=== PATIENT | male | born 1950 | race Caucasian/White ===

== ENCOUNTER 2017-09-16 22:11 | Inpatient (IN) | payer MEDICARE, OTHER ==
[~2017-09-16] VITALS: Ht 167.6 cm; Wt 55.0 kg
[~2017-09-16 22:11] MED LIST: ALBU6.7H INH
[2017-09-16] MEDS ORDERED: ipratropium/albuterol 3ml nebule NEB STA (22:20)
[2017-09-16 22:27] LABS: BASOPHILS # (AUTO) 0.1 X10'3 (0-0.2); BASOPHILS % (AUTO) 0.3 % (0-1); EOSINOPHILS # (AUTO) 0.5 X10'3 (0-0.9); EOSINOPHILS % (AUTO) 2.8 % (0-6); HEMATOCRIT 41.8 % (42.0-52.0); HEMOGLOBIN 13.7 g/dl (14.0-17.9); LYMPHOCYTES # (AUTO) 2.3 X10'3 (1.1-4.8); LYMPHOCYTES % (AUTO) 12.1 % (21-51); MEAN CORPUSCULAR HEMOGLOBIN 23.2 PG (27.0-31.0); MEAN CORPUSCULAR HGB CONC 32.7 % (33.0-36.5); MEAN CORPUSCULAR VOLUME 71.1 FL (78-98); MEAN PLATELET VOLUME 8.3 FL (7.4-10.4); MONOCYTES # (AUTO) 1.2 X10'3 (0-0.9); MONOCYTES % (AUTO) 6.5 % (2-12); NEUTROPHILS # (AUTO) 14.9 X10'3 (1.8-7.7); NEUTROPHILS % (AUTO) 78.3 % (42-75); PLATELET COUNT 281 X10'3 (140-440); RED BLOOD COUNT 5.89 X10'6 (4.70-6.10); RED CELL DISTRIBUTION WIDTH 15.5 % (11.5-14.5)
[2017-09-16 22:36] LABS: ABG BASE EXCESS -5.2 mmol/L (-2.0-3.0); ABG HCO3 19.5 mmol/L (22.0-26.0); ABG OXYGEN SATURATION 95.3 % (95-98); ABG PCO2 (T) 35.5 mmHg (35.0-48.0); ABG PH (T) 7.358 (7.350-7.450); ABG PO2 (T) 73.8 mmHg (83-108); FCOHb 1.3 % (0.5-1.5); FLOW 2 L/min; FO2Hb 94.1 % (94-100); PATIENT TEMPERATURE 37.2; RESPIRATORY RATE (OBSERVED) 46 b/min; TOTAL HEMOGLOBIN 13.8 G/dl (14.0-18.0)
[2017-09-16 22:45] LABS: ALANINE AMINOTRANSFERASE 22 U/L (12-78); ALBUMIN/GLOBULIN RATIO 1.1 (1.1-1.5); ALKALINE PHOSPHATASE 89 IU/L (46-116); ANION GAP 8 (8-16); ASPARTATE AMINO TRANSFERASE 13 U/L (10-37); BILIRUBIN,TOTAL 0.3 MG/DL (0.1-1.0); BLOOD UREA NITROGEN 17 MG/DL (7-18); CALCIUM 9.1 MG/DL (8.5-10.1); CHLORIDE 103 MMOL/L (99-107); GLUCOSE 134 MG/DL (70-104); POTASSIUM 4.2 MMOL/L (3.5-5.1); SODIUM 139 MMOL/L (135-145); TOTAL CARBON DIOXIDE 28.4 MMOL/L (24-32); TOTAL PROTEIN 7.7 G/DL (6.4-8.2); eGFR 74 ML/MIN
[2017-09-16] MEDS ORDERED: albuterol 2.5 MG/3 ML nebule CONTNEB PRN ×2 (22:45→22:55)
[2017-09-16 22:52] LABS: PARTIAL THROMBOPLASTIN TIME 25 SECONDS (22-32)
[2017-09-16] MEDS ORDERED: ipratropium/albuterol 3ml nebule NEB ONE (22:55)
[2017-09-16] MEDS ORDERED: dexamethasone sod phosphate 10mg/ml inj IV STA (22:55)
[2017-09-17] MEDS ORDERED: azithromycin 250mg tablet PO ONE (00:15)
[2017-09-17] MEDS ORDERED: CefTRIAXone 2gm/NS 100ml IVPB 100 ML IV ONE (00:15)
[2017-09-17] MEDS ORDERED: normal saline 500ml IV soln 1,000 ML IV ONE (01:25)
[2017-09-17] MEDS ORDERED: normal saline 1000ml 1,000 ML IV ONE (01:25)
[2017-09-17] MEDS ORDERED: magnesium hydroxide 30ml (MOM) UD suspension PO PRN (01:35)
[2017-09-17] MEDS ORDERED: acetaminophen 325mg tablet PO PRN (01:35)
[2017-09-17] MEDS ORDERED: ondansetron/PF 4mg/2ml inj IV PRN (01:35)
[2017-09-17] MEDS ORDERED: mag hydrox/Alum hydrox/simeth 30ml oral suspension PO PRN (01:35)
[2017-09-17] MEDS ORDERED: FLUT1AER (02:01)
[2017-09-17] MEDS: albuterol 2.5 MG/3 ML nebule NEB SCH ×5 (07:00→23:17)
[2017-09-17 08:07] VITALS: BP 153/79
[2017-09-17] MEDS: methylPREDNISolone sod succ/PF 40mg inj. IV SCH ×3 (08:23→23:51)
[2017-09-17] MEDS: heparin, porcine 5000 units/ml vial SQ SCH ×2 (08:23→20:04)
[2017-09-17 11:06] VITALS: BP 107/66
[2017-09-17 20:00] VITALS: BP 137/82
[2017-09-18] VITALS: BP 119/74
[2017-09-18] MEDS: albuterol 2.5 MG/3 ML nebule NEB SCH ×3 (02:50→11:18)
[2017-09-18 05:26] LABS: BASOPHILS % (AUTO) 0.1 % (0-1); EOSINOPHILS # (AUTO) 0.3 X10'3 (0-0.9); EOSINOPHILS % (AUTO) 1.8 % (0-6); HEMATOCRIT 35.4 % (42.0-52.0); HEMOGLOBIN 11.7 g/dl (14.0-17.9); LYMPHOCYTES # (AUTO) 0.8 X10'3 (1.1-4.8); LYMPHOCYTES % (AUTO) 4.8 % (21-51); MEAN CORPUSCULAR HEMOGLOBIN 23.4 PG (27.0-31.0); MONOCYTES # (AUTO) 0.6 X10'3 (0-0.9); MONOCYTES % (AUTO) 3.6 % (2-12); NEUTROPHILS # (AUTO) 14.6 X10'3 (1.8-7.7); NEUTROPHILS % (AUTO) 89.7 % (42-75); PLATELET COUNT 245 X10'3 (140-440); RED BLOOD COUNT 4.99 X10'6 (4.70-6.10); RED CELL DISTRIBUTION WIDTH 15.4 % (11.5-14.5); WHITE BLOOD COUNT 16.3 X10'3 (4.5-11.0)
[2017-09-18 05:56] LABS: % IRON SATURATION 59 % (11-46); IRON 124 UG/DL (53-167); TOTAL IRON BINDING CAPACITY 209 UG/DL (259-388)
[2017-09-18 06:01] LABS: ALANINE AMINOTRANSFERASE 19 U/L (12-78); ALBUMIN 3.3 G/DL (3.4-5.0); ALBUMIN/GLOBULIN RATIO 1.1 (1.1-1.5); ALKALINE PHOSPHATASE 63 IU/L (46-116); ANION GAP 7 (8-16); ASPARTATE AMINO TRANSFERASE 19 U/L (10-37); BILIRUBIN,TOTAL 0.2 MG/DL (0.1-1.0); BLOOD UREA NITROGEN 14 MG/DL (7-18); BUN/CREATININE RATIO 17.5 (5.4-32.0); CALCIUM 8.8 MG/DL (8.5-10.1); CHLORIDE 108 MMOL/L (99-107); GLUCOSE 146 MG/DL (70-104); POTASSIUM 4.3 MMOL/L (3.5-5.1); SODIUM 141 MMOL/L (135-145); TOTAL CARBON DIOXIDE 25.7 MMOL/L (24-32); TOTAL PROTEIN 6.3 G/DL (6.4-8.2); eGFR > 90 ML/MIN
[2017-09-18 07:00] VITALS: BP 106/71
[2017-09-18] MEDS: heparin, porcine 5000 units/ml vial SQ SCH (07:17)
[2017-09-18] MEDS: methylPREDNISolone sod succ/PF 40mg inj. IV SCH (07:21)
[2017-09-18 11:45] VITALS: BP 146/85
[2017-09-18] MEDS ORDERED: PRED10TA23 PO (12:54)
[2017-09-18] MEDS ORDERED: AMOX-422 PO (12:54)
[2017-09-18] MEDS ORDERED: FLUT1AER INH (12:54)
== END 2017-09-18 15:31 | disposition home or self-care (01) | DRG 872 ==
LOC: ER 22:12 → ED HOLD 09-17 01:34 → SUR 3N 09-17 07:59
PROVIDERS: ADMIT Internal Medicine; ATTEND Internal Medicine
DX: A41.9 Sepsis, unspecified organism (principal); J44.0 Chronic obstructive pulmonary disease with (acute) lower respiratory infection; J44.1 Chronic obstructive pulmonary disease with (acute) exacerbation; D64.9 Anemia, unspecified; J20.9 Acute bronchitis, unspecified; R06.03 Acute respiratory distress; Z79.899 Other long term (current) drug therapy; Z87.891 Personal history of nicotine dependence
CPT/HCPCS: 36415; 36600; 71045; 80053; 82803; 83540; 83550; 83605; 83880; 84145; 84484; 85018; 85025; 85610; 85730; 87040; 87070; 87502; 87503; 93005; 94640; 94760; 96365; 96375; 99291; J0696; J1100; J1644; J2920; J7030

== ENCOUNTER 2017-09-18 21:04 | Inpatient (IN) | payer MEDICARE, OTHER ==
[~2017-09-18] VITALS: Ht 167.6 cm; Wt 54.5 kg
[~2017-09-18 21:04] MED LIST changes: +AMOX-422 PO; +FLUT1AER; +FLUT1AER INH; +PRED10TA23 PO
[2017-09-18] MEDS ORDERED: normal saline 1000ML IV soln IVB ONE (21:35)
[2017-09-18] MEDS ORDERED: ipratropium 0.5 MG/2.5ML nebule IH ONE (21:35)
[2017-09-18] MEDS ORDERED: albuterol 2.5 MG/3 ML nebule CONTNEB PRN (21:35)
[2017-09-18 21:49] LABS: BASOPHILS % (AUTO) 0.1 % (0-1); EOSINOPHILS # (AUTO) 0.3 X10'3 (0-0.9); EOSINOPHILS % (AUTO) 1.6 % (0-6); HEMATOCRIT 39.1 % (42.0-52.0); HEMOGLOBIN 12.8 g/dl (14.0-17.9); LYMPHOCYTES # (AUTO) 1.7 X10'3 (1.1-4.8); LYMPHOCYTES % (AUTO) 8.5 % (21-51); MEAN CORPUSCULAR HEMOGLOBIN 23.2 PG (27.0-31.0); MEAN CORPUSCULAR HGB CONC 32.7 % (33.0-36.5); MEAN CORPUSCULAR VOLUME 71.1 FL (78-98); MEAN PLATELET VOLUME 8.9 FL (7.4-10.4); MONOCYTES # (AUTO) 1.6 X10'3 (0-0.9); MONOCYTES % (AUTO) 7.8 % (2-12); NEUTROPHILS # (AUTO) 16.7 X10'3 (1.8-7.7); PLATELET COUNT 258 X10'3 (140-440); RED BLOOD COUNT 5.51 X10'6 (4.70-6.10); RED CELL DISTRIBUTION WIDTH 15.6 % (11.5-14.5); WHITE BLOOD COUNT 20.3 X10'3 (4.5-11.0)
[2017-09-18 21:58] LABS: ALANINE AMINOTRANSFERASE 28 U/L (12-78); ALBUMIN/GLOBULIN RATIO 1.1 (1.1-1.5); ALKALINE PHOSPHATASE 77 IU/L (46-116); ANION GAP 8 (8-16); ASPARTATE AMINO TRANSFERASE 27 U/L (10-37); BILIRUBIN,TOTAL 0.2 MG/DL (0.1-1.0); BLOOD UREA NITROGEN 19 MG/DL (7-18); CHLORIDE 104 MMOL/L (99-107); GLUCOSE 123 MG/DL (70-104); POTASSIUM 3.8 MMOL/L (3.5-5.1); SODIUM 139 MMOL/L (135-145); TOTAL CARBON DIOXIDE 27.5 MMOL/L (24-32); TOTAL PROTEIN 7.5 G/DL (6.4-8.2); eGFR 74 ML/MIN
[2017-09-18] MEDS ORDERED: methylPREDNISolone sod succ 125mg/2ml vial IV ONE (22:30)
[2017-09-18] MEDS ORDERED: ondansetron/PF 4mg/2ml inj IV PRN (22:40)
[2017-09-18] MEDS ORDERED: acetaminophen 325mg tablet PO PRN (22:40)
[2017-09-18] MEDS ORDERED: mag hydrox/Alum hydrox/simeth 30ml oral suspension PO PRN (22:40)
[2017-09-18] MEDS ORDERED: magnesium hydroxide 30ml (MOM) UD suspension PO PRN (22:40)
[2017-09-18 23:33] VITALS: BP 152/84
[2017-09-18] MEDS: methylPREDNISolone sod succ 125mg/2ml vial IV SCH (23:42)
[2017-09-19] VITALS: BP 156/84
[2017-09-19] MEDS: albuterol 2.5 MG/3 ML nebule NEB SCH ×7 (01:05→23:36)
[2017-09-19 05:19] LABS: BASOPHILS % (AUTO) 0 % (0-1); EOSINOPHILS # (AUTO) 0.1 X10'3 (0-0.9); EOSINOPHILS % (AUTO) 0.8 % (0-6); HEMATOCRIT 32.9 % (42.0-52.0); LYMPHOCYTES # (AUTO) 0.6 X10'3 (1.1-4.8); LYMPHOCYTES % (AUTO) 3.4 % (21-51); MEAN CORPUSCULAR HEMOGLOBIN 23.4 PG (27.0-31.0); MEAN CORPUSCULAR HGB CONC 33.5 % (33.0-36.5); MEAN CORPUSCULAR VOLUME 69.9 FL (78-98); MEAN PLATELET VOLUME 8.6 FL (7.4-10.4); MONOCYTES # (AUTO) 0.6 X10'3 (0-0.9); MONOCYTES % (AUTO) 3.6 % (2-12); NEUTROPHILS # (AUTO) 15.6 X10'3 (1.8-7.7); NEUTROPHILS % (AUTO) 92.2 % (42-75); PLATELET COUNT 233 X10'3 (140-440); RED CELL DISTRIBUTION WIDTH 15.1 % (11.5-14.5); WHITE BLOOD COUNT 16.9 X10'3 (4.5-11.0)
[2017-09-19 05:39] LABS: ELLIPTOCYTES 1+; MICROCYTOSIS 2+; PLATELET ESTIMATE NORMAL
[2017-09-19 05:52] LABS: ALANINE AMINOTRANSFERASE 23 U/L (12-78); ALBUMIN 3.3 G/DL (3.4-5.0); ALBUMIN/GLOBULIN RATIO 1.1 (1.1-1.5); ALKALINE PHOSPHATASE 63 IU/L (46-116); ANION GAP 11 (8-16); ASPARTATE AMINO TRANSFERASE 20 U/L (10-37); BILIRUBIN,TOTAL 0.3 MG/DL (0.1-1.0); BLOOD UREA NITROGEN 17 MG/DL (7-18); CALCIUM 8.6 MG/DL (8.5-10.1); CHLORIDE 106 MMOL/L (99-107); GLUCOSE 147 MG/DL (70-104); SODIUM 142 MMOL/L (135-145); TOTAL PROTEIN 6.2 G/DL (6.4-8.2); eGFR 74 ML/MIN
[2017-09-19] MEDS ORDERED: amox tr/potassium clavulanate 875/125mg TAB PO SCH (08:00)
[2017-09-19] MEDS: methylPREDNISolone sod succ 125mg/2ml vial IV SCH ×3 (09:24→23:55)
[2017-09-19] MEDS: heparin, porcine 5000 units/ml vial SQ SCH ×2 (09:25→20:34)
[2017-09-19] MEDS: amox tr/potassium clavulanate 875/125mg TAB PO SCH ×2 (09:25→20:33)
[2017-09-19] MEDS ORDERED: iohexol 350MG/ML 100ml bottle IV ONE (18:42)
[2017-09-19 20:00] VITALS: BP 151/88
[2017-09-20] VITALS: BP 144/82
[2017-09-20] MEDS: albuterol 2.5 MG/3 ML nebule NEB SCH ×6 (03:33→23:08)
[2017-09-20 05:20] LABS: BASOPHILS % (AUTO) 0 % (0-1); EOSINOPHILS # (AUTO) 0.2 X10'3 (0-0.9); EOSINOPHILS % (AUTO) 1.1 % (0-6); HEMATOCRIT 35.7 % (42.0-52.0); LYMPHOCYTES # (AUTO) 0.9 X10'3 (1.1-4.8); LYMPHOCYTES % (AUTO) 6.4 % (21-51); MEAN CORPUSCULAR HEMOGLOBIN 23.4 PG (27.0-31.0); MEAN CORPUSCULAR HGB CONC 33.6 % (33.0-36.5); MEAN CORPUSCULAR VOLUME 69.7 FL (78-98); MEAN PLATELET VOLUME 8.7 FL (7.4-10.4); MONOCYTES # (AUTO) 0.6 X10'3 (0-0.9); NEUTROPHILS # (AUTO) 12.3 X10'3 (1.8-7.7); NEUTROPHILS % (AUTO) 88.5 % (42-75); PLATELET COUNT 251 X10'3 (140-440); RED BLOOD COUNT 5.12 X10'6 (4.70-6.10); RED CELL DISTRIBUTION WIDTH 15.2 % (11.5-14.5); WHITE BLOOD COUNT 13.9 X10'3 (4.5-11.0)
[2017-09-20 05:46] LABS: ALANINE AMINOTRANSFERASE 26 U/L (12-78); ALBUMIN 3.3 G/DL (3.4-5.0); ALBUMIN/GLOBULIN RATIO 1.1 (1.1-1.5); ALKALINE PHOSPHATASE 64 IU/L (46-116); ANION GAP 9 (8-16); ASPARTATE AMINO TRANSFERASE 21 U/L (10-37); BILIRUBIN,TOTAL 0.3 MG/DL (0.1-1.0); BLOOD UREA NITROGEN 17 MG/DL (7-18); BUN/CREATININE RATIO 20.2 (5.4-32.0); CHLORIDE 105 MMOL/L (99-107); CREATININE 0.84 MG/DL (0.60-1.10); GLUCOSE 127 MG/DL (70-104); POTASSIUM 4.1 MMOL/L (3.5-5.1); SODIUM 142 MMOL/L (135-145); TOTAL CARBON DIOXIDE 28.4 MMOL/L (24-32); TOTAL PROTEIN 6.4 G/DL (6.4-8.2); eGFR > 90 ML/MIN
[2017-09-20 07:00] VITALS: BP 129/82
[2017-09-20] MEDS ORDERED: FLUT1AER INH (07:32)
[2017-09-20] MEDS: amox tr/potassium clavulanate 875/125mg TAB PO SCH ×2 (08:16→20:40)
[2017-09-20] MEDS: heparin, porcine 5000 units/ml vial SQ SCH ×2 (08:16→20:41)
[2017-09-20] MEDS: lactobacillus rhamnosus 10,000 MMU CELLS/CAPSULE PO SCH ×2 (08:16→16:34)
[2017-09-20] MEDS: methylPREDNISolone sod succ 125mg/2ml vial IV SCH ×3 (08:16→23:59)
[2017-09-20] MEDS: montelukast 10mg tablet PO SCH (10:10)
[2017-09-20 11:00] VITALS: BP 128/59
[2017-09-20] MEDS: benzonatate 100mg capsule PO PRN ×2 (11:32→20:42)
[2017-09-20] MEDS: guaiFENesin ER 600mg tablet PO SCH ×2 (11:32→20:40)
[2017-09-20 18:00] VITALS: BP 129/82
[2017-09-21] VITALS: BP 135/84
[2017-09-21] MEDS: albuterol 2.5 MG/3 ML nebule NEB SCH ×3 (03:03→11:04)
[2017-09-21 05:44] LABS: BASOPHILS % (AUTO) 0 % (0-1); EOSINOPHILS # (AUTO) 0.2 X10'3 (0-0.9); EOSINOPHILS % (AUTO) 1.3 % (0-6); HEMATOCRIT 35.3 % (42.0-52.0); HEMOGLOBIN 11.6 g/dl (14.0-17.9); LYMPHOCYTES # (AUTO) 0.8 X10'3 (1.1-4.8); LYMPHOCYTES % (AUTO) 6.6 % (21-51); MEAN CORPUSCULAR HEMOGLOBIN 23.1 PG (27.0-31.0); MEAN CORPUSCULAR HGB CONC 32.7 % (33.0-36.5); MEAN CORPUSCULAR VOLUME 70.5 FL (78-98); MEAN PLATELET VOLUME 8.7 FL (7.4-10.4); MONOCYTES # (AUTO) 0.6 X10'3 (0-0.9); MONOCYTES % (AUTO) 4.8 % (2-12); NEUTROPHILS % (AUTO) 87.3 % (42-75); PLATELET COUNT 234 X10'3 (140-440); RED BLOOD COUNT 5.01 X10'6 (4.70-6.10); RED CELL DISTRIBUTION WIDTH 15.2 % (11.5-14.5); WHITE BLOOD COUNT 12.6 X10'3 (4.5-11.0)
[2017-09-21] MEDS: benzonatate 100mg capsule PO PRN (05:46)
[2017-09-21 06:15] LABS: ALANINE AMINOTRANSFERASE 27 U/L (12-78); ALBUMIN 3.2 G/DL (3.4-5.0); ALBUMIN/GLOBULIN RATIO 1.1 (1.1-1.5); ALKALINE PHOSPHATASE 56 IU/L (46-116); ANION GAP 8 (8-16); ASPARTATE AMINO TRANSFERASE 17 U/L (10-37); BILIRUBIN,TOTAL 0.2 MG/DL (0.1-1.0); BLOOD UREA NITROGEN 21 MG/DL (7-18); BUN/CREATININE RATIO 23.9 (5.4-32.0); CALCIUM 8.7 MG/DL (8.5-10.1); CHLORIDE 104 MMOL/L (99-107); CREATININE 0.88 MG/DL (0.60-1.10); GLUCOSE 157 MG/DL (70-104); POTASSIUM 3.7 MMOL/L (3.5-5.1); SODIUM 141 MMOL/L (135-145); TOTAL CARBON DIOXIDE 28.8 MMOL/L (24-32); eGFR 86 ML/MIN
[2017-09-21 07:19] VITALS: BP 135/85
[2017-09-21] MEDS: montelukast 10mg tablet PO SCH (08:27)
[2017-09-21] MEDS: amox tr/potassium clavulanate 875/125mg TAB PO SCH (08:28)
[2017-09-21] MEDS: lactobacillus rhamnosus 10,000 MMU CELLS/CAPSULE PO SCH (08:28)
[2017-09-21] MEDS: guaiFENesin ER 600mg tablet PO SCH (08:29)
[2017-09-21] MEDS: heparin, porcine 5000 units/ml vial SQ SCH (08:30)
[2017-09-21] MEDS: methylPREDNISolone sod succ 125mg/2ml vial IV SCH (08:32)
[2017-09-21 11:00] VITALS: BP 134/87
[2017-09-21] MEDS ORDERED: BENZ-34 PO (11:53)
[2017-09-21] MEDS ORDERED: GUAI600T45 PO (11:53)
[2017-09-21] MEDS ORDERED: PRED20TA PO (11:53)
[2017-09-21] MEDS ORDERED: MONT10TA24 PO (11:53)
[2017-09-21] MEDS ORDERED: PRED10TA23 PO (12:19)
== END 2017-09-21 14:06 | disposition home or self-care (01) | DRG 191 ==
LOC: ER 21:05 → ED HOLD 22:39 → EDBEDREQ 22:57 → SUR 3N 23:13
PROVIDERS: ADMIT Internal Medicine; ATTEND Family Medicine
PROC: B32T1ZZ Computerized Tomography (CT Scan) of Left Pulmonary Artery using Low Osmolar Contrast (ICD-10-PCS; principal; 2017-09-19)
PROC: B3201ZZ Computerized Tomography (CT Scan) of Thoracic Aorta using Low Osmolar Contrast (ICD-10-PCS; 2017-09-19)
PROC: B32S1ZZ Computerized Tomography (CT Scan) of Right Pulmonary Artery using Low Osmolar Contrast (ICD-10-PCS; 2017-09-19)
PROC: BW241ZZ Computerized Tomography (CT Scan) of Chest and Abdomen using Low Osmolar Contrast (ICD-10-PCS; 2017-09-19)
DX: J44.1 Chronic obstructive pulmonary disease with (acute) exacerbation (principal); R64 Cachexia; D71 Functional disorders of polymorphonuclear neutrophils; Z68.1 Body mass index [BMI] 19.9 or less, adult; J98.01 Acute bronchospasm; F41.9 Anxiety disorder, unspecified; I10 Essential (primary) hypertension; J40 Bronchitis, not specified as acute or chronic; D72.829 Elevated white blood cell count, unspecified; T38.0X5A Adverse effect of glucocorticoids and synthetic analogues, initial encounter; Z79.899 Other long term (current) drug therapy; Z87.891 Personal history of nicotine dependence; Z82.49 Family history of ischemic heart disease and other diseases of the circulatory system; Y92.89 Other specified places as the place of occurrence of the external cause
CPT/HCPCS: 36415; 71045; 71275; 80053; 84484; 85025; 87070; 93005; 94640; 94667; 94668; 94760; 96361; 96374; 99285; J1644; J2930; J7030; Q9967

== ENCOUNTER 2017-09-23 05:26 | Inpatient (IN) | payer MEDICARE, OTHER ==
[~2017-09-23] VITALS: Ht 165.1 cm; Wt 62.9 kg
[2017-09-23] VITALS (10 sets, daily range): BP systolic 94–205; BP diastolic 56–158
[~2017-09-23 05:26] MED LIST changes: +BENZ-34 PO; -FLUT1AER; +GUAI600T45 PO; +MONT10TA24 PO; +PRED20TA PO
[2017-09-23] MEDS ORDERED: methylPREDNISolone sod succ 125mg/2ml vial IV ONE (05:30)
[2017-09-23] MEDS ORDERED: LORazepam 2 mg/ml vial IV ONE ×3 (05:30→15:30)
[2017-09-23] MEDS ORDERED: LORazepam 2 mg/ml vial ONE (05:30)
[2017-09-23] MEDS ORDERED: levoFLOXACIN-Levaquin 750MG/D5 150 ML IV ONE (05:30)
[2017-09-23] MEDS ORDERED: ipratropium 0.5 MG/2.5ML nebule IH ONE (05:30)
[2017-09-23] MEDS ORDERED: albuterol 2.5 MG/3 ML nebule CONTNEB PRN (05:30)
[2017-09-23] MEDS ORDERED: magnesium 2GM in 50ml NS 50 ML IV ONE (05:35)
[2017-09-23 05:46] LABS: BASOPHILS % (AUTO) 0 % (0-1); EOSINOPHILS # (AUTO) 0.3 X10'3 (0-0.9); EOSINOPHILS % (AUTO) 1.6 % (0-6); HEMATOCRIT 40.6 % (42.0-52.0); HEMOGLOBIN 13.5 g/dl (14.0-17.9); LYMPHOCYTES # (AUTO) 0.6 X10'3 (1.1-4.8); LYMPHOCYTES % (AUTO) 3.4 % (21-51); MEAN CORPUSCULAR HEMOGLOBIN 23.5 PG (27.0-31.0); MEAN CORPUSCULAR HGB CONC 33.2 % (33.0-36.5); MEAN CORPUSCULAR VOLUME 70.7 FL (78-98); MONOCYTES # (AUTO) 0.7 X10'3 (0-0.9); MONOCYTES % (AUTO) 3.9 % (2-12); NEUTROPHILS % (AUTO) 91.1 % (42-75); PLATELET COUNT 224 X10'3 (140-440); RED BLOOD COUNT 5.74 X10'6 (4.70-6.10); RED CELL DISTRIBUTION WIDTH 15.3 % (11.5-14.5); WHITE BLOOD COUNT 17.5 X10'3 (4.5-11.0)
[2017-09-23] MEDS ORDERED: 0.9 % SODIUM CHLORIDE 10 ML VIAL ONE ×3 (06:00)
[2017-09-23] MEDS ORDERED: flumazenil 0.1 mg/ml inj. IV ONE (06:00)
[2017-09-23] MEDS ORDERED: etomidate 2mg/ml inj. ONE ×3 (06:00)
[2017-09-23] MEDS ORDERED: rocuronium 10mg/ml inj IV ONE (06:00)
[2017-09-23 06:01] LABS: ABG BASE EXCESS -2.4 mmol/L (-2.0-3.0); ABG HCO3 24.4 mmol/L (22.0-26.0); ABG OXYGEN SATURATION 99.4 % (95-98); ABG PCO2 (T) 49.4 mmHg (35.0-48.0); ABG PO2 (T) 319.7 mmHg (83-108); FCOHb 0.7 % (0.5-1.5); FMetHb 0.2 % (0.3-1.12); FO2Hb 98.5 % (94-100); PATIENT TEMPERATURE 36.6; RESPIRATORY RATE 18 b/min; TOTAL HEMOGLOBIN 13.6 G/dl (14.0-18.0)
[2017-09-23 06:10] LABS: PARTIAL THROMBOPLASTIN TIME 24 SECONDS (22-32); PROTHROMBIN TIME 10.7 SECONDS (9.0-12.0)
[2017-09-23 06:21] LABS: ALANINE AMINOTRANSFERASE 34 U/L (12-78); ALBUMIN 3.7 G/DL (3.4-5.0); ALBUMIN/GLOBULIN RATIO 1.1 (1.1-1.5); ALKALINE PHOSPHATASE 72 IU/L (46-116); ANION GAP 12 (8-16); ASPARTATE AMINO TRANSFERASE 23 U/L (10-37); BILIRUBIN,TOTAL 0.3 MG/DL (0.1-1.0); BLOOD UREA NITROGEN 17 MG/DL (7-18); BUN/CREATININE RATIO 17.3 (5.4-32.0); CALCIUM 8.5 MG/DL (8.5-10.1); CHLORIDE 97 MMOL/L (99-107); CREATININE 0.98 MG/DL (0.60-1.10); GLUCOSE 161 MG/DL (70-104); MAGNESIUM 2.2 MG/DL (1.5-2.4); POTASSIUM 4.1 MMOL/L (3.5-5.1); SODIUM 138 MMOL/L (135-145); TOTAL PROTEIN 7.1 G/DL (6.4-8.2); eGFR 76 ML/MIN
[2017-09-23] MEDS ORDERED: benzonatate 100mg capsule PO ONE (07:10)
[2017-09-23] MEDS: K, MAG and/or Phos replacement - Verify level? MC SCH (08:00)
[2017-09-23] MEDS ORDERED: normal saline 1000ml 1,000 ML IV SCH (11:29)
[2017-09-23] MEDS ORDERED: mag hydrox/Alum hydrox/simeth 30ml oral suspension PO PRN (11:30)
[2017-09-23] MEDS ORDERED: ondansetron/PF 4mg/2ml inj IV PRN ×2 (11:30→17:55)
[2017-09-23] MEDS ORDERED: acetaminophen 325mg tablet PO PRN ×3 (11:30→17:55)
[2017-09-23] MEDS ORDERED: magnesium hydroxide 30ml (MOM) UD suspension PO PRN ×2 (11:30→17:55)
[2017-09-23] MEDS ORDERED: LORazepam 2 mg/ml vial IV PRN (11:35)
[2017-09-23] MEDS ORDERED: ipratropium/albuterol 3ml nebule ONE (11:57)
[2017-09-23] MEDS: ipratropium/albuterol 3ml nebule NEB SCH ×3 (11:58→23:02)
[2017-09-23 12:31] LABS: ABG BASE EXCESS 1.2 mmol/L (-2.0-3.0); ABG HCO3 26.5 mmol/L (22.0-26.0); ABG OXYGEN SATURATION 98.5 % (95-98); ABG PCO2 (T) 44.5 mmHg (35.0-48.0); ABG PH (T) 7.393 (7.350-7.450); ABG PO2 (T) 134.8 mmHg (83-108); FCOHb 0.5 % (0.5-1.5); FMetHb 0.1 % (0.3-1.12); FO2Hb 97.9 % (94-100); PEEP 5 cm H2O; RESPIRATORY RATE 18 b/min; TOTAL HEMOGLOBIN 13.4 G/dl (14.0-18.0)
[2017-09-23] MEDS: methylPREDNISolone sod succ 125mg/2ml vial IV SCH ×2 (13:35→21:32)
[2017-09-23] MEDS ORDERED: midazolam 2 mg/2 ml injection ONE ×3 (16:31→16:36)
[2017-09-23] MEDS: midazolam 100mg in NS 100ml 100 ML IV PRN ×2 (16:54→18:53)
[2017-09-23 17:55] LABS: ABG BASE EXCESS -0.7 mmol/L (-2.0-3.0); ABG HCO3 27.3 mmol/L (22.0-26.0); ABG OXYGEN SATURATION 99.3 % (95-98); ABG PCO2 (T) 60.9 mmHg (35.0-48.0); ABG PH (T) 7.269 (7.350-7.450); ABG PO2 (T) 222.8 mmHg (83-108); FCOHb 0.2 % (0.5-1.5); FMetHb 0.2 % (0.3-1.12); FO2Hb 98.9 % (94-100); PEEP 5 cm H2O; RESPIRATORY RATE 16 b/min; TIDAL VOLUME 400 mL; TOTAL HEMOGLOBIN 12.5 G/dl (14.0-18.0)
[2017-09-23] MEDS ORDERED: normal saline 1000ml 1,000 ML IV ONE ×2 (17:55)
[2017-09-23] MEDS ORDERED: potassium Cl 20 mEq SR tablet PO PRN ×2 (17:55)
[2017-09-23] MEDS ORDERED: morphine 5 MG/ML injection IV PRN ×2 (17:55)
[2017-09-23] MEDS: FENTANYL-0.9 % NACL/PF 100 ML IV PRN (18:52)
[2017-09-23 19:11] LABS: ABG BASE EXCESS -5.9 mmol/L (-2.0-3.0); ABG HCO3 22.2 mmol/L (22.0-26.0); ABG PCO2 (T) 53.8 mmHg (35.0-48.0); ABG PH (T) 7.229 (7.350-7.450); ABG PO2 (T) 181.3 mmHg (83-108); FCOHb 0.3 % (0.5-1.5); FMetHb 0.2 % (0.3-1.12); FO2Hb 98.5 % (94-100); MINUTE VOLUME 7 L/min; PATIENT TEMPERATURE 36.1; PEEP 5 cm H2O; RESPIRATORY RATE 16 b/min; RESPIRATORY RATE (OBSERVED) 16 b/min; TIDAL VOLUME 400 mL; TOTAL HEMOGLOBIN 12.2 G/dl (14.0-18.0)
[2017-09-23 19:16] LABS: OXYGEN SATURATION (MIXED VEN) 85.7 % (60-80); PO2 MIXED VENOUS (TEMP COR) 51.8 mmHg (35-46)
[2017-09-23] MEDS: doxycycline inj 100 MG in normal saline 100ml IV soln 100 ML IV SCH (21:22)
[2017-09-23] MEDS: heparin, porcine 5000 units/ml vial SQ SCH (21:32)
[2017-09-24] VITALS (23 sets, daily range): BP systolic 81–145; BP diastolic 52–88
[2017-09-24] MEDS: methylPREDNISolone sod succ 125mg/2ml vial IV SCH ×4 (03:05→20:16)
[2017-09-24] MEDS: ipratropium/albuterol 3ml nebule NEB SCH ×5 (03:52→23:52)
[2017-09-24 04:04] LABS: BASOPHILS % (AUTO) 0 % (0-1); EOSINOPHILS # (AUTO) 0.3 X10'3 (0-0.9); EOSINOPHILS % (AUTO) 1.7 % (0-6); HEMOGLOBIN 11.2 g/dl (14.0-17.9); LYMPHOCYTES # (AUTO) 0.3 X10'3 (1.1-4.8); LYMPHOCYTES % (AUTO) 2.2 % (21-51); MEAN CORPUSCULAR HEMOGLOBIN 23.1 PG (27.0-31.0); MEAN CORPUSCULAR HGB CONC 32.2 % (33.0-36.5); MEAN CORPUSCULAR VOLUME 71.7 FL (78-98); MEAN PLATELET VOLUME 8.7 FL (7.4-10.4); MONOCYTES # (AUTO) 0.8 X10'3 (0-0.9); MONOCYTES % (AUTO) 4.8 % (2-12); NEUTROPHILS # (AUTO) 14.3 X10'3 (1.8-7.7); NEUTROPHILS % (AUTO) 91.3 % (42-75); PLATELET COUNT 190 X10'3 (140-440); RED BLOOD COUNT 4.88 X10'6 (4.70-6.10); RED CELL DISTRIBUTION WIDTH 15.9 % (11.5-14.5); WHITE BLOOD COUNT 15.6 X10'3 (4.5-11.0)
[2017-09-24 04:05] LABS: ABG BASE EXCESS -1.1 mmol/L (-2.0-3.0); ABG HCO3 25.4 mmol/L (22.0-26.0); ABG OXYGEN SATURATION 97.8 % (95-98); ABG PCO2 (T) 50.7 mmHg (35.0-48.0); ABG PO2 (T) 103.6 mmHg (83-108); FCOHb 0.3 % (0.5-1.5); FO2Hb 97.5 % (94-100); MINUTE VOLUME 8 L/min; PATIENT TEMPERATURE 37.3; PEEP 5 cm H2O; RESPIRATORY RATE 16 b/min; RESPIRATORY RATE (OBSERVED) 17 b/min; TIDAL VOLUME 400 mL; TOTAL HEMOGLOBIN 11.9 G/dl (14.0-18.0)
[2017-09-24 04:14] LABS: ALBUMIN 2.9 G/DL (3.4-5.0); ANION GAP 6 (8-16); BLOOD UREA NITROGEN 25 MG/DL (7-18); BUN/CREATININE RATIO 30.1 (5.4-32.0); CALCIUM 7.6 MG/DL (8.5-10.1); CHLORIDE 103 MMOL/L (99-107); CREATININE 0.83 MG/DL (0.60-1.10); GLUCOSE 96 MG/DL (70-104); POTASSIUM 4.8 MMOL/L (3.5-5.1); SODIUM 137 MMOL/L (135-145); TOTAL CARBON DIOXIDE 27.9 MMOL/L (24-32); eGFR > 90 ML/MIN
[2017-09-24] MEDS: K, MAG and/or Phos replacement - Verify level? MC SCH (08:00)
[2017-09-24] MEDS: heparin, porcine 5000 units/ml vial SQ SCH ×2 (08:11→20:16)
[2017-09-24] MEDS: FENTANYL-0.9 % NACL/PF 100 ML IV PRN ×2 (08:13→20:59)
[2017-09-24] MEDS: doxycycline inj 100 MG in normal saline 100ml IV soln 100 ML IV SCH (11:17)
[2017-09-24] MEDS ORDERED: CefTRIAXone 1 gm/50ml D5W ADV 50 ML IV SCH ×2 (12:50→14:42)
[2017-09-24] MEDS: oseltamivir phos 75mg capsule PO SCH ×2 (14:04→20:15)
[2017-09-24] MEDS: azithromycin/NS 500mg/250ml 250 ML IV SCH (14:05)
[2017-09-24] MEDS ORDERED: cefTRIAXone 1g/NS 100ml IVPB 100 ML IV SCH (14:12)
[2017-09-24] MEDS: midazolam 100mg in NS 100ml 100 ML IV PRN (14:29)
[2017-09-24 15:09] LABS: ALLEN'S TEST Positive
[2017-09-24] MEDS: lactobacillus rhamnosus 10,000 MMU CELLS/CAPSULE PO SCH (20:15)
[2017-09-25] VITALS (22 sets, daily range): BP systolic 97–184; BP diastolic 49–114
[2017-09-25 01:28] LABS: BASOPHILS % (AUTO) 0 % (0-1); EOSINOPHILS % (AUTO) 0 % (0-6); HEMATOCRIT 33.1 % (42.0-52.0); HEMOGLOBIN 10.8 g/dl (14.0-17.9); LYMPHOCYTES # (AUTO) 0.5 X10'3 (1.1-4.8); LYMPHOCYTES % (AUTO) 3.4 % (21-51); MEAN CORPUSCULAR HEMOGLOBIN 23.5 PG (27.0-31.0); MEAN CORPUSCULAR HGB CONC 32.8 % (33.0-36.5); MEAN CORPUSCULAR VOLUME 71.7 FL (78-98); MEAN PLATELET VOLUME 8.7 FL (7.4-10.4); MONOCYTES # (AUTO) 0.4 X10'3 (0-0.9); MONOCYTES % (AUTO) 3.3 % (2-12); NEUTROPHILS # (AUTO) 12.7 X10'3 (1.8-7.7); NEUTROPHILS % (AUTO) 93.3 % (42-75); PLATELET COUNT 166 X10'3 (140-440); RED BLOOD COUNT 4.61 X10'6 (4.70-6.10); RED CELL DISTRIBUTION WIDTH 14.8 % (11.5-14.5); WHITE BLOOD COUNT 13.6 X10'3 (4.5-11.0)
[2017-09-25 01:29] LABS: ALBUMIN 2.8 G/DL (3.4-5.0); ANION GAP 6 (8-16); BLOOD UREA NITROGEN 27 MG/DL (7-18); BUN/CREATININE RATIO 32.9 (5.4-32.0); CALCIUM 8.2 MG/DL (8.5-10.1); CHLORIDE 105 MMOL/L (99-107); CREATININE 0.82 MG/DL (0.60-1.10); GLUCOSE 115 MG/DL (70-104); POTASSIUM 4.5 MMOL/L (3.5-5.1); SODIUM 141 MMOL/L (135-145); TOTAL CARBON DIOXIDE 29.9 MMOL/L (24-32); eGFR > 90 ML/MIN
[2017-09-25] MEDS: methylPREDNISolone sod succ 125mg/2ml vial IV SCH ×4 (02:51→21:03)
[2017-09-25] MEDS: midazolam 100mg in NS 100ml 100 ML IV PRN (02:52)
[2017-09-25] MEDS: ipratropium/albuterol 3ml nebule NEB SCH ×6 (03:54→23:56)
[2017-09-25 04:05] LABS: ABG PCO2 (T) 49.2 mmHg (35.0-48.0); ABG PH (T) 7.361 (7.350-7.450); ABG PO2 (T) 78.5 mmHg (83-108); MINUTE VOLUME 7 L/min; PATIENT TEMPERATURE 36.8; PEEP 5 cm H2O; RESPIRATORY RATE 16 b/min; RESPIRATORY RATE (OBSERVED) 16 b/min; TIDAL VOLUME 400 mL
[2017-09-25 04:06] LABS: ABG BASE EXCESS 1.3 mmol/L (-2.0-3.0); ABG HCO3 27.3 mmol/L (22.0-26.0); ABG OXYGEN SATURATION 95.8 % (95-98); FCOHb 0.2 % (0.5-1.5); FO2Hb 95.6 % (94-100); TOTAL HEMOGLOBIN 10.8 G/dl (14.0-18.0)
[2017-09-25] MEDS: K, MAG and/or Phos replacement - Verify level? MC SCH (08:00)
[2017-09-25] MEDS: oseltamivir phos 75mg capsule PO SCH ×2 (08:52→21:03)
[2017-09-25] MEDS: azithromycin/NS 500mg/250ml 250 ML IV SCH (08:53)
[2017-09-25] MEDS: heparin, porcine 5000 units/ml vial SQ SCH ×2 (08:54→21:03)
[2017-09-25] MEDS: lactobacillus rhamnosus 10,000 MMU CELLS/CAPSULE PO SCH ×2 (08:55→17:42)
[2017-09-25] MEDS: FENTANYL-0.9 % NACL/PF 100 ML IV PRN (10:54)
[2017-09-25] MEDS: dexmedetomidin/NS 400mcg/100ml 100 ML IV SCH (13:55)
[2017-09-25] MEDS: normal saline 1000ml 1,000 ML IV SCH (13:56)
[2017-09-25] MEDS ORDERED: MIDAZolam 5mg/ml 2ml vial ONE (19:14)
[2017-09-25] MEDS ORDERED: midazolam 2 mg/2 ml injection IV ONE (19:25)
[2017-09-25] MEDS ORDERED: MIDAZolam 5mg/ml 2ml vial IV PRN (20:55)
[2017-09-25] MEDS: famotidine/PF 10 mg/ml inj IV SCH (21:03)
[2017-09-25 22:11] LABS: ABG BASE EXCESS -1.3 mmol/L (-2.0-3.0); ABG HCO3 23.2 mmol/L (22.0-26.0); ABG OXYGEN SATURATION 95.6 % (95-98); ABG PCO2 (T) 37.5 mmHg (35.0-48.0); ABG PH (T) 7.408 (7.350-7.450); ABG PO2 (T) 74.8 mmHg (83-108); FCOHb 0.1 % (0.5-1.5); FMetHb 0.1 % (0.3-1.12); FO2Hb 95.4 % (94-100); MINUTE VOLUME 8 L/min; PATIENT TEMPERATURE 36.5; PEEP 5 cm H2O; RESPIRATORY RATE 16 b/min; RESPIRATORY RATE (OBSERVED) 16 b/min; TOTAL HEMOGLOBIN 11.1 G/dl (14.0-18.0)
[2017-09-26] VITALS (23 sets, daily range): BP systolic 96–204; BP diastolic 61–121
[2017-09-26] MEDS: FENTANYL-0.9 % NACL/PF 100 ML IV PRN ×4 (01:57→20:26)
[2017-09-26] MEDS: dexmedetomidin/NS 400mcg/100ml 100 ML IV SCH ×3 (01:58→20:25)
[2017-09-26] MEDS ORDERED: MIDAZolam 5mg/ml 2ml vial ONE (02:18)
[2017-09-26] MEDS ORDERED: MIDAZolam 5mg/ml 2ml vial IV ONE (02:20)
[2017-09-26 02:52] LABS: BASOPHILS # (AUTO) 0.1 X10'3 (0-0.2); BASOPHILS % (AUTO) 0.5 % (0-1); EOSINOPHILS % (AUTO) 0 % (0-6); HEMATOCRIT 32.5 % (42.0-52.0); HEMOGLOBIN 10.7 g/dl (14.0-17.9); LYMPHOCYTES # (AUTO) 0.2 X10'3 (1.1-4.8); LYMPHOCYTES % (AUTO) 1.8 % (21-51); MEAN CORPUSCULAR HEMOGLOBIN 23.1 PG (27.0-31.0); MEAN CORPUSCULAR HGB CONC 32.8 % (33.0-36.5); MEAN CORPUSCULAR VOLUME 70.3 FL (78-98); MONOCYTES # (AUTO) 0.5 X10'3 (0-0.9); MONOCYTES % (AUTO) 4.1 % (2-12); NEUTROPHILS # (AUTO) 12.6 X10'3 (1.8-7.7); NEUTROPHILS % (AUTO) 93.6 % (42-75); PLATELET COUNT 164 X10'3 (140-440); RED BLOOD COUNT 4.62 X10'6 (4.70-6.10); RED CELL DISTRIBUTION WIDTH 14.9 % (11.5-14.5); WHITE BLOOD COUNT 13.4 X10'3 (4.5-11.0)
[2017-09-26 03:02] LABS: ALBUMIN 2.6 G/DL (3.4-5.0); ANION GAP 6 (8-16); BLOOD UREA NITROGEN 30 MG/DL (7-18); BUN/CREATININE RATIO 41.1 (5.4-32.0); CALCIUM 7.9 MG/DL (8.5-10.1); CHLORIDE 107 MMOL/L (99-107); CREATININE 0.73 MG/DL (0.60-1.10); GLUCOSE 176 MG/DL (70-104); POTASSIUM 4.4 MMOL/L (3.5-5.1); SODIUM 142 MMOL/L (135-145); eGFR > 90 ML/MIN
[2017-09-26] MEDS: methylPREDNISolone sod succ 125mg/2ml vial IV SCH ×4 (03:34→20:26)
[2017-09-26] MEDS: normal saline 1000ml 1,000 ML IV SCH ×4 (03:34→17:40)
[2017-09-26] MEDS: ipratropium/albuterol 3ml nebule NEB SCH ×8 (03:43→23:08)
[2017-09-26 04:00] LABS: ABG BASE EXCESS 1.3 mmol/L (-2.0-3.0); ABG HCO3 26.7 mmol/L (22.0-26.0); ABG OXYGEN SATURATION 96.8 % (95-98); ABG PCO2 (T) 44.9 mmHg (35.0-48.0); ABG PO2 (T) 86.5 mmHg (83-108); FCOHb 0.3 % (0.5-1.5); FMetHb 0.3 % (0.3-1.12); FO2Hb 96.2 % (94-100); PATIENT TEMPERATURE 36.7; PEEP 5 cm H2O; RESPIRATORY RATE 16 b/min; RESPIRATORY RATE (OBSERVED) 20 b/min; TOTAL HEMOGLOBIN 11.3 G/dl (14.0-18.0)
[2017-09-26] MEDS: famotidine/PF 10 mg/ml inj IV SCH ×2 (07:39→20:27)
[2017-09-26] MEDS: heparin, porcine 5000 units/ml vial SQ SCH ×2 (07:41→20:27)
[2017-09-26] MEDS: lactobacillus rhamnosus 10,000 MMU CELLS/CAPSULE PO SCH ×2 (07:42→20:26)
[2017-09-26] MEDS: cefTRIAXone 1g/NS 100ml IVPB 100 ML IV SCH (07:42)
[2017-09-26] MEDS: oseltamivir phos 75mg capsule PO SCH ×2 (07:42→20:26)
[2017-09-26] MEDS: azithromycin/NS 500mg/250ml 250 ML IV SCH (07:43)
[2017-09-26] MEDS: K, MAG and/or Phos replacement - Verify level? MC SCH (08:00)
[2017-09-26] MEDS ORDERED: ipratropium/albuterol 3ml nebule NEB PRN (08:45)
[2017-09-26] MEDS ORDERED: racepinephrine 11.25mg/0.5ml nebule NEB PRN (08:45)
[2017-09-26] MEDS: midazolam 2 mg/2 ml injection IV PRN ×2 (12:15→14:18)
[2017-09-26] MEDS: midazolam 100mg in NS 100ml 100 ML IV SCH (15:04)
[2017-09-27] VITALS (24 sets, daily range): BP systolic 115–169; BP diastolic 58–73
[2017-09-27] MEDS: ipratropium/albuterol 3ml nebule NEB SCH ×7 (03:00→21:10)
[2017-09-27] MEDS: methylPREDNISolone sod succ 125mg/2ml vial IV SCH ×4 (03:15→21:08)
[2017-09-27] MEDS: normal saline 1000ml 1,000 ML IV SCH (03:24)
[2017-09-27] MEDS: FENTANYL-0.9 % NACL/PF 100 ML IV PRN ×3 (03:25→22:30)
[2017-09-27 03:34] LABS: BASOPHILS % (AUTO) 0 % (0-1); EOSINOPHILS % (AUTO) 0 % (0-6); HEMATOCRIT 32.4 % (42.0-52.0); HEMOGLOBIN 10.6 g/dl (14.0-17.9); LYMPHOCYTES # (AUTO) 0.4 X10'3 (1.1-4.8); LYMPHOCYTES % (AUTO) 2.8 % (21-51); MEAN CORPUSCULAR HEMOGLOBIN 23.1 PG (27.0-31.0); MEAN CORPUSCULAR HGB CONC 32.6 % (33.0-36.5); MEAN PLATELET VOLUME 8.2 FL (7.4-10.4); MONOCYTES # (AUTO) 0.5 X10'3 (0-0.9); MONOCYTES % (AUTO) 4.2 % (2-12); PLATELET COUNT 157 X10'3 (140-440); RED BLOOD COUNT 4.57 X10'6 (4.70-6.10); RED CELL DISTRIBUTION WIDTH 15.9 % (11.5-14.5); WHITE BLOOD COUNT 12.9 X10'3 (4.5-11.0)
[2017-09-27 03:41] LABS: ABG BASE EXCESS 0.2 mmol/L (-2.0-3.0); ABG HCO3 23.6 mmol/L (22.0-26.0); ABG OXYGEN SATURATION 96.7 % (95-98); ABG PCO2 (T) 33.3 mmHg (35.0-48.0); ABG PH (T) 7.467 (7.350-7.450); ABG PO2 (T) 81.3 mmHg (83-108); FCOHb 0.3 % (0.5-1.5); FMetHb 0.1 % (0.3-1.12); FO2Hb 96.3 % (94-100); PATIENT TEMPERATURE 36.5; PEEP 5 cm H2O; RESPIRATORY RATE 16 b/min; RESPIRATORY RATE (OBSERVED) 16 b/min; TOTAL HEMOGLOBIN 11.3 G/dl (14.0-18.0)
[2017-09-27 03:44] LABS: ALBUMIN 2.4 G/DL (3.4-5.0); ANION GAP 6 (8-16); BLOOD UREA NITROGEN 26 MG/DL (7-18); BUN/CREATININE RATIO 41.9 (5.4-32.0); CALCIUM 7.5 MG/DL (8.5-10.1); CHLORIDE 109 MMOL/L (99-107); CREATININE 0.62 MG/DL (0.60-1.10); GLUCOSE 151 MG/DL (70-104); POTASSIUM 4.4 MMOL/L (3.5-5.1); SODIUM 143 MMOL/L (135-145); TOTAL CARBON DIOXIDE 28.1 MMOL/L (24-32); eGFR > 90 ML/MIN
[2017-09-27] MEDS: K, MAG and/or Phos replacement - Verify level? MC SCH (08:00)
[2017-09-27] MEDS: midazolam 100mg in NS 100ml 100 ML IV SCH ×2 (08:12→22:31)
[2017-09-27] MEDS: famotidine/PF 10 mg/ml inj IV SCH ×2 (08:12→21:11)
[2017-09-27] MEDS: azithromycin/NS 500mg/250ml 250 ML IV SCH (08:13)
[2017-09-27] MEDS: lactobacillus rhamnosus 10,000 MMU CELLS/CAPSULE PO SCH ×2 (08:13→20:59)
[2017-09-27] MEDS: cefTRIAXone 1g/NS 100ml IVPB 100 ML IV SCH (08:13)
[2017-09-27] MEDS: dexmedetomidin/NS 400mcg/100ml 100 ML IV SCH ×2 (08:13→19:59)
[2017-09-27] MEDS: oseltamivir phos 75mg capsule PO SCH ×2 (08:13→20:59)
[2017-09-27] MEDS: heparin, porcine 5000 units/ml vial SQ SCH ×2 (08:14→21:05)
[2017-09-27] MEDS ORDERED: magnesium hydroxide 30ml (MOM) UD suspension PO PRN ×2 (10:35→10:55)
[2017-09-27] MEDS: methylnaltrexone br 12mg/0.6ml inj***SubQ only SQ SCH (13:56)
[2017-09-27] MEDS ORDERED: docusate sod 100mg capsule PO SCH ×2 (20:00)
[2017-09-27] MEDS: sennosides/docusate sodium tablet PO SCH (21:01)
[2017-09-28] VITALS (24 sets, daily range): BP systolic 137–185; BP diastolic 66–87
[2017-09-28] MEDS: normal saline 1000ml 1,000 ML IV SCH ×2 (01:15→07:03)
[2017-09-28 02:01] LABS: BASOPHILS % (AUTO) 0.1 % (0-1); EOSINOPHILS % (AUTO) 0.1 % (0-6); HEMATOCRIT 33.4 % (42.0-52.0); HEMOGLOBIN 10.7 g/dl (14.0-17.9); LYMPHOCYTES # (AUTO) 0.4 X10'3 (1.1-4.8); LYMPHOCYTES % (AUTO) 2.5 % (21-51); MEAN CORPUSCULAR HEMOGLOBIN 22.7 PG (27.0-31.0); MEAN CORPUSCULAR HGB CONC 32.2 % (33.0-36.5); MEAN CORPUSCULAR VOLUME 70.7 FL (78-98); MEAN PLATELET VOLUME 8.1 FL (7.4-10.4); MONOCYTES # (AUTO) 0.5 X10'3 (0-0.9); MONOCYTES % (AUTO) 3.2 % (2-12); NEUTROPHILS # (AUTO) 14.1 X10'3 (1.8-7.7); NEUTROPHILS % (AUTO) 94.1 % (42-75); PLATELET COUNT 155 X10'3 (140-440); RED BLOOD COUNT 4.72 X10'6 (4.70-6.10); RED CELL DISTRIBUTION WIDTH 14.9 % (11.5-14.5)
[2017-09-28 02:08] LABS: ALBUMIN 2.3 G/DL (3.4-5.0); ANION GAP 6 (8-16); BLOOD UREA NITROGEN 27 MG/DL (7-18); BUN/CREATININE RATIO 44.3 (5.4-32.0); CALCIUM 7.8 MG/DL (8.5-10.1); CHLORIDE 110 MMOL/L (99-107); CREATININE 0.61 MG/DL (0.60-1.10); GLUCOSE 149 MG/DL (70-104); POTASSIUM 4.5 MMOL/L (3.5-5.1); SODIUM 145 MMOL/L (135-145); eGFR > 90 ML/MIN
[2017-09-28] MEDS: methylPREDNISolone sod succ 125mg/2ml vial IV SCH ×4 (02:16→20:22)
[2017-09-28] MEDS: ipratropium/albuterol 3ml nebule NEB SCH ×4 (03:22→21:00)
[2017-09-28 04:26] LABS: ABG BASE EXCESS 2.6 mmol/L (-2.0-3.0); ABG HCO3 26.3 mmol/L (22.0-26.0); ABG OXYGEN SATURATION 94.9 % (95-98); ABG PCO2 (T) 36.4 mmHg (35.0-48.0); ABG PH (T) 7.475 (7.350-7.450); ABG PO2 (T) 65.5 mmHg (83-108); FMetHb 0.1 % (0.3-1.12); FO2Hb 94.8 % (94-100); MINUTE VOLUME 8 L/min; PATIENT TEMPERATURE 36.3; PEEP 5 cm H2O; RESPIRATORY RATE 14 b/min; RESPIRATORY RATE (OBSERVED) 18 b/min; TOTAL HEMOGLOBIN 11.6 G/dl (14.0-18.0)
[2017-09-28] MEDS: oseltamivir phos 75mg capsule PO SCH ×2 (07:01→20:15)
[2017-09-28] MEDS: dexmedetomidin/NS 400mcg/100ml 100 ML IV SCH ×2 (07:01→16:13)
[2017-09-28] MEDS: heparin, porcine 5000 units/ml vial SQ SCH ×2 (07:01→20:24)
[2017-09-28] MEDS: famotidine/PF 10 mg/ml inj IV SCH (07:01)
[2017-09-28] MEDS: FENTANYL-0.9 % NACL/PF 100 ML IV PRN ×3 (07:02→23:38)
[2017-09-28] MEDS: cefTRIAXone 1g/NS 100ml IVPB 100 ML IV SCH (07:02)
[2017-09-28] MEDS: lactobacillus rhamnosus 10,000 MMU CELLS/CAPSULE PO SCH ×2 (07:02→20:17)
[2017-09-28] MEDS: azithromycin/NS 500mg/250ml 250 ML IV SCH (07:02)
[2017-09-28] MEDS: K, MAG and/or Phos replacement - Verify level? MC SCH (07:03)
[2017-09-28] MEDS: docusate sodium 100mg/10ml UD cup PO SCH ×2 (07:18→20:18)
[2017-09-28] MEDS ORDERED: metoclopramide 5 mg/ml inj IV PRN (12:06)
[2017-09-28] MEDS: midazolam 100mg in NS 100ml 100 ML IV SCH ×2 (12:33→23:39)
[2017-09-28] MEDS: ziprasidone IM 20mg inj **IM only IM SCH (13:50)
[2017-09-28] MEDS ORDERED: metoclopramide 5 mg/ml inj IV SCH (20:00)
[2017-09-28] MEDS: sennosides/docusate sodium tablet PO SCH (20:17)
[2017-09-28] MEDS: famotidine 20mg tablet PO SCH (20:17)
[2017-09-28] MEDS ORDERED: metoclopramide 10mg/10 ml UD oral solution PO PRN (20:35)
[2017-09-28] MEDS ORDERED: hydrALAZINE 20mg/ml inj. IV PRN (20:35)
[2017-09-28] MEDS ORDERED: metoclopramide 10mg/10 ml UD oral solution PO ONE (20:45)
[2017-09-29] VITALS (24 sets, daily range): BP systolic 127–185; BP diastolic 70–93
[2017-09-29 02:50] LABS: BASOPHILS % (AUTO) 0 % (0-1); EOSINOPHILS # (AUTO) 0.3 X10'3 (0-0.9); EOSINOPHILS % (AUTO) 1.7 % (0-6); HEMATOCRIT 33.6 % (42.0-52.0); LYMPHOCYTES # (AUTO) 0.4 X10'3 (1.1-4.8); LYMPHOCYTES % (AUTO) 2.5 % (21-51); MEAN CORPUSCULAR HEMOGLOBIN 23.2 PG (27.0-31.0); MEAN CORPUSCULAR HGB CONC 32.8 % (33.0-36.5); MEAN CORPUSCULAR VOLUME 70.6 FL (78-98); MEAN PLATELET VOLUME 8.2 FL (7.4-10.4); MONOCYTES # (AUTO) 0.2 X10'3 (0-0.9); MONOCYTES % (AUTO) 1.3 % (2-12); NEUTROPHILS # (AUTO) 15.2 X10'3 (1.8-7.7); NEUTROPHILS % (AUTO) 94.5 % (42-75); PLATELET COUNT 159 X10'3 (140-440); RED BLOOD COUNT 4.76 X10'6 (4.70-6.10); RED CELL DISTRIBUTION WIDTH 15.7 % (11.5-14.5); WHITE BLOOD COUNT 16.1 X10'3 (4.5-11.0)
[2017-09-29] MEDS: methylPREDNISolone sod succ 125mg/2ml vial IV SCH ×4 (02:53→20:19)
[2017-09-29] MEDS: metoclopramide 10mg/10 ml UD oral solution PO SCH ×4 (02:58→20:19)
[2017-09-29] MEDS: ipratropium/albuterol 3ml nebule NEB SCH ×4 (03:06→20:28)
[2017-09-29 03:20] LABS: ALANINE AMINOTRANSFERASE 138 U/L (12-78); ALBUMIN 2.2 G/DL (3.4-5.0); ALBUMIN/GLOBULIN RATIO 0.9 (1.1-1.5); ALKALINE PHOSPHATASE 41 IU/L (46-116); ANION GAP 7 (8-16); ASPARTATE AMINO TRANSFERASE 33 U/L (10-37); BILIRUBIN,TOTAL 0.3 MG/DL (0.1-1.0); BLOOD UREA NITROGEN 27 MG/DL (7-18); BUN/CREATININE RATIO 50.9 (5.4-32.0); CALCIUM 7.6 MG/DL (8.5-10.1); CHLORIDE 109 MMOL/L (99-107); CREATININE 0.53 MG/DL (0.60-1.10); GLUCOSE 157 MG/DL (70-104); MAGNESIUM 2.1 MG/DL (1.5-2.4); PHOSPHORUS 3.1 MG/DL (2.3-4.5); SODIUM 144 MMOL/L (135-145); TOTAL CARBON DIOXIDE 27.6 MMOL/L (24-32); TOTAL PROTEIN 4.7 G/DL (6.4-8.2); eGFR > 90 ML/MIN
[2017-09-29 03:50] LABS: ABG BASE EXCESS 1.7 mmol/L (-2.0-3.0); ABG OXYGEN SATURATION 94.2 % (95-98); ABG PCO2 (T) 41.3 mmHg (35.0-48.0); ABG PH (T) 7.421 (7.350-7.450); ABG PO2 (T) 71.7 mmHg (83-108); FCOHb 0.3 % (0.5-1.5); FMetHb 0.3 % (0.3-1.12); FO2Hb 93.6 % (94-100); MINUTE VOLUME 7 L/min; PATIENT TEMPERATURE 37.9; PEEP 5 cm H2O; RESPIRATORY RATE 14 b/min; RESPIRATORY RATE (OBSERVED) 19 b/min; TOTAL HEMOGLOBIN 12.2 G/dl (14.0-18.0)
[2017-09-29] MEDS: normal saline 1000ml 1,000 ML IV SCH ×3 (04:10→14:10)
[2017-09-29] MEDS: dexmedetomidin/NS 400mcg/100ml 100 ML IV SCH ×3 (07:01→22:25)
[2017-09-29] MEDS: FENTANYL-0.9 % NACL/PF 100 ML IV PRN ×2 (07:02→20:20)
[2017-09-29] MEDS: K, MAG and/or Phos replacement - Verify level? MC SCH (08:00)
[2017-09-29] MEDS: cefTRIAXone 1g/NS 100ml IVPB 100 ML IV SCH (08:30)
[2017-09-29] MEDS: docusate sodium 100mg/10ml UD cup PO SCH ×2 (08:31→20:19)
[2017-09-29] MEDS: oseltamivir phos 75mg capsule PO SCH (08:31)
[2017-09-29] MEDS: lactobacillus rhamnosus 10,000 MMU CELLS/CAPSULE PO SCH ×2 (08:31→20:19)
[2017-09-29] MEDS: ziprasidone IM 20mg inj **IM only IM SCH (08:31)
[2017-09-29] MEDS: famotidine 20mg tablet PO SCH ×2 (08:32→20:19)
[2017-09-29] MEDS: methylnaltrexone br 12mg/0.6ml inj***SubQ only SQ SCH (08:32)
[2017-09-29] MEDS: heparin, porcine 5000 units/ml vial SQ SCH ×2 (08:32→20:19)
[2017-09-29] MEDS: midazolam 100mg in NS 100ml 100 ML IV SCH ×2 (10:31→20:21)
[2017-09-29] MEDS ORDERED: polyethylene glycol 3350 17gm powd pack PO PRN ×2 (10:35→10:55)
[2017-09-29] MEDS ORDERED: lactulose 20gm/30ml cup PO PRN (10:55)
[2017-09-29] MEDS ORDERED: bisacodyl 10mg suppository rectal RC PRN (10:55)
[2017-09-29] MEDS: sennosides/docusate sodium tablet PO SCH (20:20)
[2017-09-29] MEDS: ziprasidone 20mg capsule PO SCH (20:20)
[2017-09-30] VITALS (23 sets, daily range): BP systolic 113–200; BP diastolic 64–116
[2017-09-30] MEDS: normal saline 1000ml 1,000 ML IV SCH ×3 (00:21→20:10)
[2017-09-30] MEDS: metoclopramide 10mg/10 ml UD oral solution PO SCH ×4 (02:04→20:00)
[2017-09-30] MEDS: methylPREDNISolone sod succ 125mg/2ml vial IV SCH ×4 (02:04→20:22)
[2017-09-30 02:21] LABS: BASOPHILS % (AUTO) 0 % (0-1); EOSINOPHILS # (AUTO) 0.4 X10'3 (0-0.9); EOSINOPHILS % (AUTO) 2.2 % (0-6); HEMATOCRIT 33.6 % (42.0-52.0); HEMOGLOBIN 10.8 g/dl (14.0-17.9); LYMPHOCYTES # (AUTO) 0.5 X10'3 (1.1-4.8); MEAN CORPUSCULAR HGB CONC 32.2 % (33.0-36.5); MEAN CORPUSCULAR VOLUME 71.3 FL (78-98); MEAN PLATELET VOLUME 8.1 FL (7.4-10.4); MONOCYTES # (AUTO) 0.5 X10'3 (0-0.9); MONOCYTES % (AUTO) 2.6 % (2-12); NEUTROPHILS # (AUTO) 16.1 X10'3 (1.8-7.7); NEUTROPHILS % (AUTO) 92.2 % (42-75); PLATELET COUNT 157 X10'3 (140-440); RED BLOOD COUNT 4.71 X10'6 (4.70-6.10); RED CELL DISTRIBUTION WIDTH 15.9 % (11.5-14.5); WHITE BLOOD COUNT 17.5 X10'3 (4.5-11.0)
[2017-09-30] MEDS: ipratropium/albuterol 3ml nebule NEB SCH ×4 (02:23→20:34)
[2017-09-30 02:32] LABS: ANION GAP 6 (8-16); BLOOD UREA NITROGEN 24 MG/DL (7-18); BUN/CREATININE RATIO 53.3 (5.4-32.0); CALCIUM 7.2 MG/DL (8.5-10.1); CHLORIDE 110 MMOL/L (99-107); CREATININE 0.45 MG/DL (0.60-1.10); GLUCOSE 127 MG/DL (70-104); POTASSIUM 3.9 MMOL/L (3.5-5.1); SODIUM 144 MMOL/L (135-145); TOTAL CARBON DIOXIDE 27.7 MMOL/L (24-32); eGFR > 90 ML/MIN
[2017-09-30 03:46] LABS: ABG BASE EXCESS 1.3 mmol/L (-2.0-3.0); ABG HCO3 25.5 mmol/L (22.0-26.0); ABG OXYGEN SATURATION 95.5 % (95-98); ABG PCO2 (T) 37.4 mmHg (35.0-48.0); ABG PH (T) 7.447 (7.350-7.450); ABG PO2 (T) 71.4 mmHg (83-108); FMetHb 0.1 % (0.3-1.12); FO2Hb 95.4 % (94-100); MINUTE VOLUME 8 L/min; PATIENT TEMPERATURE 36.1; PEEP 5 cm H2O; RESPIRATORY RATE 14 b/min; RESPIRATORY RATE (OBSERVED) 15 b/min; TIDAL VOLUME 513 mL; TOTAL HEMOGLOBIN 12.1 G/dl (14.0-18.0)
[2017-09-30] MEDS: dexmedetomidin/NS 400mcg/100ml 100 ML IV SCH ×3 (04:50→20:45)
[2017-09-30] MEDS: FENTANYL-0.9 % NACL/PF 100 ML IV PRN ×2 (07:21→17:34)
[2017-09-30] MEDS: midazolam 100mg in NS 100ml 100 ML IV SCH ×2 (07:21→16:18)
[2017-09-30] MEDS: K, MAG and/or Phos replacement - Verify level? MC SCH (08:00)
[2017-09-30] MEDS: famotidine 20mg tablet PO SCH ×2 (08:00→20:22)
[2017-09-30] MEDS: ziprasidone IM 20mg inj **IM only IM SCH (08:00)
[2017-09-30] MEDS: docusate sodium 100mg/10ml UD cup PO SCH ×2 (09:13→20:22)
[2017-09-30] MEDS: lactobacillus rhamnosus 10,000 MMU CELLS/CAPSULE PO SCH ×2 (09:14→20:22)
[2017-09-30] MEDS: ziprasidone 20mg capsule PO SCH ×2 (09:14→20:22)
[2017-09-30] MEDS: cefTRIAXone 1g/NS 100ml IVPB 100 ML IV SCH (09:14)
[2017-09-30] MEDS: heparin, porcine 5000 units/ml vial SQ SCH ×2 (09:14→20:24)
[2017-09-30 15:01] LABS: C DIFF ANTIGEN NEGATIVE (NEGATIVE); C DIFF SPECIMEN=DIARRHEA? ACCEPTABLE; C DIFFICILE TOXINS A&B NEGATIVE (Neg)
[2017-09-30] MEDS: labetalol 100mg tablet PO SCH (20:23)
[2017-09-30] MEDS: sennosides/docusate sodium tablet PO SCH (20:24)
[2017-10-01] VITALS (24 sets, daily range): BP systolic 92–214; BP diastolic 59–106
[2017-10-01] MEDS: midazolam 100mg in NS 100ml 100 ML IV SCH (00:59)
[2017-10-01] MEDS: ipratropium/albuterol 3ml nebule NEB SCH ×4 (02:10→19:02)
[2017-10-01] MEDS: methylPREDNISolone sod succ 125mg/2ml vial IV SCH ×3 (02:36→19:58)
[2017-10-01] MEDS: metoclopramide 10mg/10 ml UD oral solution PO SCH ×4 (02:36→19:59)
[2017-10-01 02:48] LABS: BASOPHILS # (AUTO) 0.1 X10'3 (0-0.2); BASOPHILS % (AUTO) 0.3 % (0-1); EOSINOPHILS # (AUTO) 0.1 X10'3 (0-0.9); EOSINOPHILS % (AUTO) 0.8 % (0-6); HEMATOCRIT 34.2 % (42.0-52.0); HEMOGLOBIN 11.3 g/dl (14.0-17.9); LYMPHOCYTES # (AUTO) 0.5 X10'3 (1.1-4.8); LYMPHOCYTES % (AUTO) 2.5 % (21-51); MEAN CORPUSCULAR HEMOGLOBIN 23.3 PG (27.0-31.0); MEAN CORPUSCULAR VOLUME 70.5 FL (78-98); MEAN PLATELET VOLUME 8.5 FL (7.4-10.4); MONOCYTES # (AUTO) 0.4 X10'3 (0-0.9); MONOCYTES % (AUTO) 2.1 % (2-12); NEUTROPHILS # (AUTO) 17.1 X10'3 (1.8-7.7); NEUTROPHILS % (AUTO) 94.3 % (42-75); PLATELET COUNT 170 X10'3 (140-440); RED BLOOD COUNT 4.85 X10'6 (4.70-6.10); RED CELL DISTRIBUTION WIDTH 15.6 % (11.5-14.5); WHITE BLOOD COUNT 18.2 X10'3 (4.5-11.0)
[2017-10-01 03:05] LABS: ALBUMIN 2.2 G/DL (3.4-5.0); ANION GAP 7 (8-16); BLOOD UREA NITROGEN 26 MG/DL (7-18); BUN/CREATININE RATIO 46.4 (5.4-32.0); CALCIUM 7.8 MG/DL (8.5-10.1); CHLORIDE 106 MMOL/L (99-107); CREATININE 0.56 MG/DL (0.60-1.10); GLUCOSE 211 MG/DL (70-104); POTASSIUM 3.9 MMOL/L (3.5-5.1); PREALBUMIN 21.8 MG/DL (19-36); SODIUM 140 MMOL/L (135-145); TOTAL CARBON DIOXIDE 26.8 MMOL/L (24-32); eGFR > 90 ML/MIN
[2017-10-01 03:26] LABS: ABG BASE EXCESS -0.4 mmol/L (-2.0-3.0); ABG HCO3 23.4 mmol/L (22.0-26.0); ABG OXYGEN SATURATION 96.6 % (95-98); ABG PCO2 (T) 34.7 mmHg (35.0-48.0); ABG PH (T) 7.444 (7.350-7.450); ABG PO2 (T) 79.6 mmHg (83-108); FCOHb 0.1 % (0.5-1.5); FMetHb 0.1 % (0.3-1.12); FO2Hb 96.4 % (94-100); MINUTE VOLUME 8 L/min; PATIENT TEMPERATURE 36.3; PEEP 5 cm H2O; RESPIRATORY RATE 14 b/min; RESPIRATORY RATE (OBSERVED) 15 b/min; TIDAL VOLUME 427 mL; TOTAL HEMOGLOBIN 11.9 G/dl (14.0-18.0)
[2017-10-01] MEDS: dexmedetomidin/NS 400mcg/100ml 100 ML IV SCH ×4 (03:41→22:50)
[2017-10-01] MEDS: FENTANYL-0.9 % NACL/PF 100 ML IV PRN (03:42)
[2017-10-01] MEDS: normal saline 1000ml 1,000 ML IV SCH (06:10)
[2017-10-01] MEDS: methylnaltrexone br 12mg/0.6ml inj***SubQ only SQ SCH (08:00)
[2017-10-01] MEDS: K, MAG and/or Phos replacement - Verify level? MC SCH (08:00)
[2017-10-01] MEDS: docusate sodium 100mg/10ml UD cup PO SCH ×2 (08:00→19:58)
[2017-10-01] MEDS: cefTRIAXone 1g/NS 100ml IVPB 100 ML IV SCH (08:50)
[2017-10-01] MEDS: lactobacillus rhamnosus 10,000 MMU CELLS/CAPSULE PO SCH ×2 (08:52→19:59)
[2017-10-01] MEDS: heparin, porcine 5000 units/ml vial SQ SCH ×2 (08:52→20:00)
[2017-10-01] MEDS: labetalol 100mg tablet PO SCH ×2 (08:52→20:00)
[2017-10-01] MEDS: famotidine 20mg tablet PO SCH ×2 (08:52→19:59)
[2017-10-01] MEDS ORDERED: ziprasidone 20mg capsule PO ONE (10:05)
[2017-10-01] MEDS ORDERED: furosemide 40mg/4ml inj IV ONE (11:30)
[2017-10-01] MEDS: LORazepam 2 mg/ml vial IV PRN ×2 (12:10→15:58)
[2017-10-01] MEDS: propofol 1000mg/100ml bottle 100 ML IV PRN (16:31)
[2017-10-01] MEDS: ziprasidone 20mg capsule PO SCH (19:59)
[2017-10-01] MEDS: sennosides/docusate sodium tablet PO SCH (20:01)
[2017-10-02] VITALS (24 sets, daily range): BP systolic 105–157; BP diastolic 65–91
[2017-10-02] MEDS: metoclopramide 10mg/10 ml UD oral solution PO SCH ×4 (01:23→20:00)
[2017-10-02] MEDS: LORazepam 2 mg/ml vial IV PRN (01:30)
[2017-10-02 02:28] LABS: BASOPHILS % (AUTO) 0.1 % (0-1); EOSINOPHILS # (AUTO) 0.2 X10'3 (0-0.9); EOSINOPHILS % (AUTO) 0.9 % (0-6); HEMATOCRIT 34.9 % (42.0-52.0); HEMOGLOBIN 11.3 g/dl (14.0-17.9); LYMPHOCYTES # (AUTO) 0.5 X10'3 (1.1-4.8); LYMPHOCYTES % (AUTO) 2.5 % (21-51); MEAN CORPUSCULAR HGB CONC 32.4 % (33.0-36.5); MEAN CORPUSCULAR VOLUME 70.8 FL (78-98); MEAN PLATELET VOLUME 8.6 FL (7.4-10.4); MONOCYTES # (AUTO) 0.5 X10'3 (0-0.9); MONOCYTES % (AUTO) 2.7 % (2-12); NEUTROPHILS # (AUTO) 16.8 X10'3 (1.8-7.7); NEUTROPHILS % (AUTO) 93.8 % (42-75); PLATELET COUNT 159 X10'3 (140-440); RED BLOOD COUNT 4.92 X10'6 (4.70-6.10); RED CELL DISTRIBUTION WIDTH 15.9 % (11.5-14.5); WHITE BLOOD COUNT 17.9 X10'3 (4.5-11.0)
[2017-10-02 02:36] LABS: ALBUMIN 2.1 G/DL (3.4-5.0); ANION GAP 3 (8-16); BLOOD UREA NITROGEN 27 MG/DL (7-18); BUN/CREATININE RATIO 40.3 (5.4-32.0); CALCIUM 7.9 MG/DL (8.5-10.1); CHLORIDE 106 MMOL/L (99-107); CREATININE 0.67 MG/DL (0.60-1.10); GLUCOSE 190 MG/DL (70-104); POTASSIUM 3.6 MMOL/L (3.5-5.1); SODIUM 141 MMOL/L (135-145); TOTAL CARBON DIOXIDE 31.6 MMOL/L (24-32); eGFR > 90 ML/MIN
[2017-10-02] MEDS: ipratropium/albuterol 3ml nebule NEB SCH ×4 (03:10→20:56)
[2017-10-02 03:31] LABS: ABG BASE EXCESS 6.4 mmol/L (-2.0-3.0); ABG HCO3 29.7 mmol/L (22.0-26.0); ABG OXYGEN SATURATION 88.5 % (95-98); ABG PCO2 (T) 37.2 mmHg (35.0-48.0); ABG PH (T) 7.518 (7.350-7.450); ABG PO2 (T) 48.1 mmHg (83-108); ALLEN'S TEST Positive; FCOHb 0.8 % (0.5-1.5); FMetHb 0.1 % (0.3-1.12); FO2Hb 87.7 % (94-100); MINUTE VOLUME 8 L/min; PATIENT TEMPERATURE 36.4; PEEP 5 cm H2O; RESPIRATORY RATE 14 b/min; RESPIRATORY RATE (OBSERVED) 20 b/min; TIDAL VOLUME 400 mL; TOTAL HEMOGLOBIN 11.9 G/dl (14.0-18.0)
[2017-10-02] MEDS: dexmedetomidin/NS 400mcg/100ml 100 ML IV SCH ×4 (04:08→22:10)
[2017-10-02 04:31] LABS: ABG BASE EXCESS 5.3 mmol/L (-2.0-3.0); ABG HCO3 28.8 mmol/L (22.0-26.0); ABG PCO2 (T) 37.6 mmHg (35.0-48.0); ABG PO2 (T) 233.2 mmHg (83-108); ALLEN'S TEST Positive; FCOHb 0.4 % (0.5-1.5); FMetHb 0.1 % (0.3-1.12); FO2Hb 98.5 % (94-100); MINUTE VOLUME 8 L/min; PATIENT TEMPERATURE 36.6; PEEP 5 cm H2O; RESPIRATORY RATE 14 b/min; RESPIRATORY RATE (OBSERVED) 19 b/min; TIDAL VOLUME 400 mL; TOTAL HEMOGLOBIN 11.4 G/dl (14.0-18.0)
[2017-10-02] MEDS ORDERED: methylnaltrexone br 12mg/0.6ml inj***SubQ only SQ SCH ×2 (08:00)
[2017-10-02] MEDS: docusate sodium 100mg/10ml UD cup PO SCH ×2 (08:00→20:00)
[2017-10-02] MEDS: K, MAG and/or Phos replacement - Verify level? MC SCH (08:00)
[2017-10-02] MEDS: labetalol 100mg tablet PO SCH ×2 (08:22→20:51)
[2017-10-02] MEDS: ziprasidone 20mg capsule PO SCH ×2 (08:22→20:52)
[2017-10-02] MEDS: famotidine 20mg tablet PO SCH ×2 (08:22→20:51)
[2017-10-02] MEDS: lactobacillus rhamnosus 10,000 MMU CELLS/CAPSULE PO SCH ×2 (08:22→20:51)
[2017-10-02] MEDS: cefTRIAXone 1g/NS 100ml IVPB 100 ML IV SCH (08:23)
[2017-10-02] MEDS: methylPREDNISolone sod succ 125mg/2ml vial IV SCH ×2 (08:24→20:52)
[2017-10-02] MEDS: heparin, porcine 5000 units/ml vial SQ SCH ×2 (08:24→20:52)
[2017-10-02] MEDS: sennosides/docusate sodium tablet PO SCH (20:55)
[2017-10-03] VITALS (24 sets, daily range): BP systolic 97–190; BP diastolic 59–99
[2017-10-03] MEDS: metoclopramide 10mg/10 ml UD oral solution PO SCH ×4 (02:00→20:00)
[2017-10-03] MEDS: ipratropium/albuterol 3ml nebule NEB SCH ×4 (03:17→20:05)
[2017-10-03] MEDS: dexmedetomidin/NS 400mcg/100ml 100 ML IV SCH ×2 (03:29→20:40)
[2017-10-03 03:31] LABS: ABG BASE EXCESS 4.6 mmol/L (-2.0-3.0); ABG HCO3 27.9 mmol/L (22.0-26.0); ABG OXYGEN SATURATION 95.1 % (95-98); ABG PCO2 (T) 36.8 mmHg (35.0-48.0); ABG PH (T) 7.498 (7.350-7.450); ABG PO2 (T) 71.2 mmHg (83-108); ALLEN'S TEST Positive; FCOHb 0.3 % (0.5-1.5); FO2Hb 94.8 % (94-100); MINUTE VOLUME 8 L/min; PEEP 5 cm H2O; RESPIRATORY RATE (OBSERVED) 22 b/min; TOTAL HEMOGLOBIN 11.3 G/dl (14.0-18.0)
[2017-10-03] MEDS: propofol 1000mg/100ml bottle 100 ML IV PRN ×5 (03:32→13:15)
[2017-10-03 04:42] LABS: BASOPHILS % (AUTO) 0 % (0-1); EOSINOPHILS # (AUTO) 0.3 X10'3 (0-0.9); EOSINOPHILS % (AUTO) 1.9 % (0-6); HEMATOCRIT 32.6 % (42.0-52.0); HEMOGLOBIN 10.5 g/dl (14.0-17.9); LYMPHOCYTES # (AUTO) 0.5 X10'3 (1.1-4.8); LYMPHOCYTES % (AUTO) 3.2 % (21-51); MEAN CORPUSCULAR HEMOGLOBIN 22.9 PG (27.0-31.0); MEAN CORPUSCULAR HGB CONC 32.2 % (33.0-36.5); MEAN CORPUSCULAR VOLUME 71.2 FL (78-98); MEAN PLATELET VOLUME 9.1 FL (7.4-10.4); MONOCYTES # (AUTO) 0.5 X10'3 (0-0.9); MONOCYTES % (AUTO) 3.1 % (2-12); NEUTROPHILS # (AUTO) 15.2 X10'3 (1.8-7.7); NEUTROPHILS % (AUTO) 91.8 % (42-75); PLATELET COUNT 150 X10'3 (140-440); RED BLOOD COUNT 4.58 X10'6 (4.70-6.10); RED CELL DISTRIBUTION WIDTH 15.5 % (11.5-14.5); WHITE BLOOD COUNT 16.5 X10'3 (4.5-11.0)
[2017-10-03 04:56] LABS: ALANINE AMINOTRANSFERASE 103 U/L (12-78); ALBUMIN/GLOBULIN RATIO 0.8 (1.1-1.5); ANION GAP 3 (8-16); ASPARTATE AMINO TRANSFERASE 30 U/L (10-37); BILIRUBIN,TOTAL 0.3 MG/DL (0.1-1.0); BLOOD UREA NITROGEN 22 MG/DL (7-18); BUN/CREATININE RATIO 38.6 (5.4-32.0); CALCIUM 7.7 MG/DL (8.5-10.1); CHLORIDE 103 MMOL/L (99-107); CREATININE 0.57 MG/DL (0.60-1.10); GLUCOSE 182 MG/DL (70-104); POTASSIUM 3.7 MMOL/L (3.5-5.1); SODIUM 138 MMOL/L (135-145); TOTAL PROTEIN 4.5 G/DL (6.4-8.2); eGFR > 90 ML/MIN
[2017-10-03 04:57] LABS: ALKALINE PHOSPHATASE 44 IU/L (46-116)
[2017-10-03] MEDS: methylnaltrexone br 12mg/0.6ml inj***SubQ only SQ SCH (08:00)
[2017-10-03] MEDS: K, MAG and/or Phos replacement - Verify level? MC SCH (08:00)
[2017-10-03] MEDS: docusate sodium 100mg/10ml UD cup PO SCH ×2 (08:00→19:43)
[2017-10-03] MEDS: famotidine 20mg tablet PO SCH ×2 (09:27→19:53)
[2017-10-03] MEDS: labetalol 100mg tablet PO SCH ×2 (09:27→19:53)
[2017-10-03] MEDS: methylPREDNISolone sod succ 125mg/2ml vial IV SCH (09:27)
[2017-10-03] MEDS: lactobacillus rhamnosus 10,000 MMU CELLS/CAPSULE PO SCH ×2 (09:28→19:53)
[2017-10-03] MEDS: cefTRIAXone 1g/NS 100ml IVPB 100 ML IV SCH (09:28)
[2017-10-03] MEDS: ziprasidone 20mg capsule PO SCH ×2 (09:28→20:00)
[2017-10-03] MEDS: heparin, porcine 5000 units/ml vial SQ SCH ×2 (09:29→19:53)
[2017-10-03] MEDS: sennosides/docusate sodium tablet PO SCH (20:08)
[2017-10-04] VITALS (24 sets, daily range): BP systolic 117–174; BP diastolic 66–95
[2017-10-04] MEDS: metoclopramide 10mg/10 ml UD oral solution PO SCH ×4 (02:00→20:28)
[2017-10-04] MEDS: ipratropium/albuterol 3ml nebule NEB SCH ×4 (02:27→19:39)
[2017-10-04 03:39] LABS: BASOPHILS % (AUTO) 0 % (0-1); EOSINOPHILS # (AUTO) 0.4 X10'3 (0-0.9); EOSINOPHILS % (AUTO) 2.4 % (0-6); HEMATOCRIT 31.4 % (42.0-52.0); HEMOGLOBIN 10.3 g/dl (14.0-17.9); LYMPHOCYTES # (AUTO) 0.8 X10'3 (1.1-4.8); LYMPHOCYTES % (AUTO) 4.5 % (21-51); MEAN CORPUSCULAR HEMOGLOBIN 23.2 PG (27.0-31.0); MEAN CORPUSCULAR HGB CONC 32.8 % (33.0-36.5); MEAN CORPUSCULAR VOLUME 70.6 FL (78-98); MEAN PLATELET VOLUME 9.2 FL (7.4-10.4); MONOCYTES # (AUTO) 0.7 X10'3 (0-0.9); MONOCYTES % (AUTO) 3.9 % (2-12); NEUTROPHILS # (AUTO) 15.9 X10'3 (1.8-7.7); NEUTROPHILS % (AUTO) 89.2 % (42-75); PLATELET COUNT 168 X10'3 (140-440); RED BLOOD COUNT 4.44 X10'6 (4.70-6.10); RED CELL DISTRIBUTION WIDTH 15.5 % (11.5-14.5); WHITE BLOOD COUNT 17.8 X10'3 (4.5-11.0)
[2017-10-04 03:56] LABS: ALANINE AMINOTRANSFERASE 106 U/L (12-78); ALBUMIN 2.2 G/DL (3.4-5.0); ALBUMIN/GLOBULIN RATIO 0.8 (1.1-1.5); ALKALINE PHOSPHATASE 48 IU/L (46-116); ANION GAP 7 (8-16); ASPARTATE AMINO TRANSFERASE 33 U/L (10-37); BILIRUBIN,TOTAL 0.4 MG/DL (0.1-1.0); BLOOD UREA NITROGEN 24 MG/DL (7-18); BUN/CREATININE RATIO 41.4 (5.4-32.0); CALCIUM 7.9 MG/DL (8.5-10.1); CHLORIDE 104 MMOL/L (99-107); CREATININE 0.58 MG/DL (0.60-1.10); GLUCOSE 84 MG/DL (70-104); POTASSIUM 3.5 MMOL/L (3.5-5.1); PREALBUMIN 20.7 MG/DL (19-36); SODIUM 142 MMOL/L (135-145); TOTAL CARBON DIOXIDE 31.4 MMOL/L (24-32); TOTAL PROTEIN 4.9 G/DL (6.4-8.2); eGFR > 90 ML/MIN
[2017-10-04] MEDS: K, MAG and/or Phos replacement - Verify level? MC SCH (08:00)
[2017-10-04] MEDS: docusate sodium 100mg/10ml UD cup PO SCH ×2 (08:00→20:00)
[2017-10-04] MEDS ORDERED: methylPREDNISolone sod succ 125mg/2ml vial IV SCH (08:00)
[2017-10-04] MEDS: lactobacillus rhamnosus 10,000 MMU CELLS/CAPSULE PO SCH ×2 (08:34→20:39)
[2017-10-04] MEDS: famotidine 20mg tablet PO SCH ×2 (08:34→20:27)
[2017-10-04] MEDS: labetalol 100mg tablet PO SCH ×2 (08:34→20:28)
[2017-10-04] MEDS: ziprasidone 20mg capsule PO SCH ×2 (08:35→20:27)
[2017-10-04] MEDS: heparin, porcine 5000 units/ml vial SQ SCH ×2 (08:41→20:29)
[2017-10-04] MEDS: cefTRIAXone 1g/NS 100ml IVPB 100 ML IV SCH (12:03)
[2017-10-04] MEDS: sennosides/docusate sodium tablet PO SCH (20:56)
[2017-10-05] VITALS (19 sets, daily range): BP systolic 147–175; BP diastolic 73–93
[2017-10-05] MEDS: metoclopramide 10mg/10 ml UD oral solution PO SCH ×3 (02:00→14:00)
[2017-10-05] MEDS: ipratropium/albuterol 3ml nebule NEB SCH ×3 (02:25→14:43)
[2017-10-05] MEDS: methylnaltrexone br 12mg/0.6ml inj***SubQ only SQ SCH (08:00)
[2017-10-05] MEDS: K, MAG and/or Phos replacement - Verify level? MC SCH (08:00)
[2017-10-05] MEDS: docusate sodium 100mg/10ml UD cup PO SCH (08:08)
[2017-10-05] MEDS: cefTRIAXone 1g/NS 100ml IVPB 100 ML IV SCH (08:08)
[2017-10-05] MEDS: famotidine 20mg tablet PO SCH (08:09)
[2017-10-05] MEDS: labetalol 100mg tablet PO SCH (08:09)
[2017-10-05] MEDS: lactobacillus rhamnosus 10,000 MMU CELLS/CAPSULE PO SCH (08:09)
[2017-10-05] MEDS: ziprasidone 20mg capsule PO SCH (08:09)
[2017-10-05 08:14] LABS: BASOPHILS % (AUTO) 0 % (0-1); EOSINOPHILS # (AUTO) 0.3 X10'3 (0-0.9); EOSINOPHILS % (AUTO) 1.6 % (0-6); HEMATOCRIT 35.1 % (42.0-52.0); HEMOGLOBIN 11.6 g/dl (14.0-17.9); LYMPHOCYTES # (AUTO) 0.7 X10'3 (1.1-4.8); LYMPHOCYTES % (AUTO) 4.1 % (21-51); MEAN CORPUSCULAR HEMOGLOBIN 23.4 PG (27.0-31.0); MEAN CORPUSCULAR VOLUME 70.8 FL (78-98); MEAN PLATELET VOLUME 8.3 FL (7.4-10.4); MONOCYTES # (AUTO) 0.6 X10'3 (0-0.9); MONOCYTES % (AUTO) 3.6 % (2-12); NEUTROPHILS % (AUTO) 90.7 % (42-75); PLATELET COUNT 220 X10'3 (140-440); RED BLOOD COUNT 4.96 X10'6 (4.70-6.10); RED CELL DISTRIBUTION WIDTH 15.4 % (11.5-14.5); WHITE BLOOD COUNT 17.6 X10'3 (4.5-11.0)
[2017-10-05 08:31] LABS: ANION GAP 11 (8-16); BILIRUBIN,TOTAL 0.6 MG/DL (0.1-1.0); BLOOD UREA NITROGEN 17 MG/DL (7-18); BUN/CREATININE RATIO 29.8 (5.4-32.0); CHLORIDE 102 MMOL/L (99-107); CREATININE 0.57 MG/DL (0.60-1.10); GLUCOSE 81 MG/DL (70-104); MAGNESIUM 1.9 MG/DL (1.5-2.4); PHOSPHORUS 2.7 MG/DL (2.3-4.5); POTASSIUM 3.2 MMOL/L (3.5-5.1); SODIUM 142 MMOL/L (135-145); eGFR > 90 ML/MIN
[2017-10-05 08:32] LABS: ALANINE AMINOTRANSFERASE 119 U/L (12-78); ALBUMIN 2.5 G/DL (3.4-5.0); ALBUMIN/GLOBULIN RATIO 0.9 (1.1-1.5); ALKALINE PHOSPHATASE 55 IU/L (46-116); ASPARTATE AMINO TRANSFERASE 33 U/L (10-37); TOTAL PROTEIN 5.4 G/DL (6.4-8.2)
[2017-10-05] MEDS: heparin, porcine 5000 units/ml vial SQ SCH (09:32)
== END 2017-10-05 18:50 | DRG 207 ==
LOC: ER 05:26 → ED HOLD 11:29 → PCU 3S 13:15 → CICU 2S 16:50
PROVIDERS: ADMIT Family Medicine
PROC: 0BH17EZ Insertion of Endotracheal Airway into Trachea, Via Natural or Artificial Opening (ICD-10-PCS; 2017-09-23)
PROC: 5A09357 Assistance with Respiratory Ventilation, Less than 24 Consecutive Hours, Continuous Positive Airway Pressure (ICD-10-PCS; 2017-09-23)
PROC: 5A1945Z Respiratory Ventilation, 24-96 Consecutive Hours (ICD-10-PCS; 2017-09-23)
PROC: 06HM33Z Insertion of Infusion Device into Right Femoral Vein, Percutaneous Approach (ICD-10-PCS; 2017-09-23)
PROC: 02HV33Z Insertion of Infusion Device into Superior Vena Cava, Percutaneous Approach (ICD-10-PCS; 2017-09-23)
PROC: 0B21XEZ Change Endotracheal Airway in Trachea, External Approach (ICD-10-PCS; 2017-09-25)
PROC: 5A1955Z Respiratory Ventilation, Greater than 96 Consecutive Hours (ICD-10-PCS; principal; 2017-09-26)
PROC: 0BH17EZ Insertion of Endotracheal Airway into Trachea, Via Natural or Artificial Opening (ICD-10-PCS; 2017-09-26)
PROC: 5A09457 Assistance with Respiratory Ventilation, 24-96 Consecutive Hours, Continuous Positive Airway Pressure (ICD-10-PCS; 2017-10-03)
DX: J96.20 Acute and chronic respiratory failure, unspecified whether with hypoxia or hypercapnia (principal); J09.X1 Influenza due to identified novel influenza A virus with pneumonia; J14 Pneumonia due to Hemophilus influenzae; J44.0 Chronic obstructive pulmonary disease with (acute) lower respiratory infection; J44.1 Chronic obstructive pulmonary disease with (acute) exacerbation; D72.829 Elevated white blood cell count, unspecified; T38.0X5A Adverse effect of glucocorticoids and synthetic analogues, initial encounter; F41.0 Panic disorder [episodic paroxysmal anxiety]; I10 Essential (primary) hypertension; J20.9 Acute bronchitis, unspecified; Z87.891 Personal history of nicotine dependence; Y92.89 Other specified places as the place of occurrence of the external cause
CPT/HCPCS: 36415; 36600; 71045; 80048; 80053; 82803; 82810; 82948; 83735; 83880; 84100; 84134; 84484; 85018; 85025; 85610; 85730; 87070; 87324; 87449; 87502; 87503; 93005; 94002; 94003; 94640; 94660; 94668; 94760; 96365; 96368; 96375; 97110; 97161; 97530; 99291; A4649; A6212; A6213; A6257; A6449; A7015; C1751; C1758; J0360; J0456; J0696; J1644; J1940; J1956; J2060; J2250; J2405; J2704; J2930; J3475; J3486; J3490; J7030; J8597

== ENCOUNTER 2017-10-27 21:04 | Inpatient (IN) | payer MEDICARE, OTHER ==
[~2017-10-27] VITALS: Ht 165.1 cm; Wt 51.8 kg
[~2017-10-27 21:04] MED LIST changes: -AMOX-422 PO; -BENZ-34 PO; +BENZ-49 PO; -PRED10TA23 PO; -PRED20TA PO; +etomidate 2mg/ml inj. ONE; +rocuronium 10mg/ml inj IV ONE; +sod chloride 0.9% 10ml flush syringe IV ONE
[2017-10-27] MEDS ORDERED: propofol 1000mg/100ml bottle 100 ML IV ONE ×2 (21:19→22:38)
[2017-10-27 21:47] LABS: BASOPHILS # (AUTO) 0.1 X10'3 (0-0.2); BASOPHILS % (AUTO) 0.3 % (0-1); EOSINOPHILS # (AUTO) 0.4 X10'3 (0-0.9); EOSINOPHILS % (AUTO) 1.9 % (0-6); HEMATOCRIT 37.1 % (42.0-52.0); HEMOGLOBIN 12.1 g/dl (14.0-17.9); LYMPHOCYTES # (AUTO) 6.2 X10'3 (1.1-4.8); LYMPHOCYTES % (AUTO) 27.7 % (21-51); MEAN CORPUSCULAR HEMOGLOBIN 23.6 PG (27.0-31.0); MEAN CORPUSCULAR HGB CONC 32.7 % (33.0-36.5); MEAN CORPUSCULAR VOLUME 72.2 FL (78-98); MEAN PLATELET VOLUME 7.6 FL (7.4-10.4); MONOCYTES # (AUTO) 2.1 X10'3 (0-0.9); MONOCYTES % (AUTO) 9.3 % (2-12); NEUTROPHILS # (AUTO) 13.6 X10'3 (1.8-7.7); NEUTROPHILS % (AUTO) 60.8 % (42-75); PLATELET COUNT 330 X10'3 (140-440); RED BLOOD COUNT 5.14 X10'6 (4.70-6.10); RED CELL DISTRIBUTION WIDTH 18.9 % (11.5-14.5); WHITE BLOOD COUNT 22.4 X10'3 (4.5-11.0)
[2017-10-27 21:51] LABS: PARTIAL THROMBOPLASTIN TIME 24 SECONDS (22-32); PROTHROMBIN TIME 10.4 SECONDS (9.0-12.0)
[2017-10-27 21:51] LABS: ABG BASE EXCESS 0.6 mmol/L (-2.0-3.0); ABG HCO3 27.4 mmol/L (22.0-26.0); ABG OXYGEN SATURATION 99.2 % (95-98); ABG PCO2 (T) 54.2 mmHg (35.0-48.0); ABG PH (T) 7.323 (7.350-7.450); ABG PO2 (T) 232.5 mmHg (83-108); ALLEN'S TEST Positive; FMetHb 0.1 % (0.3-1.12); FO2Hb 98.1 % (94-100); MINUTE VOLUME 8 L/min; PATIENT TEMPERATURE 37.3; PEEP 5 cm H2O; RESPIRATORY RATE 18 b/min; RESPIRATORY RATE (OBSERVED) 18 b/min; TIDAL VOLUME 400 mL; TOTAL HEMOGLOBIN 11.9 G/dl (14.0-18.0)
[2017-10-27 21:53] LABS: CLARITY,URINE CLEAR (Clear); COLOR,URINE YELLOW (Yellow); GLUCOSE, URINE NEGATIVE (Neg); KETONES,URINE NEGATIVE (Neg); LEUKOCYTE ESTERASE ,URINE NEGATIVE (Neg); NITRITES, URINE NEGATIVE (Neg); OCCULT BLOOD,URINE TRACE-LYSED (Neg); PH,URINE 5.5 (4.8-8.0); PROTEIN,URINE 30 mg/dl (Neg); UROBILINOGEN,URINE 0.2 E.U/dL (0.2-1.0)
[2017-10-27 21:57] LABS: ALANINE AMINOTRANSFERASE 77 U/L (12-78); ALBUMIN 3.4 G/DL (3.4-5.0); ALBUMIN/GLOBULIN RATIO 0.8 (1.1-1.5); ALKALINE PHOSPHATASE 92 IU/L (46-116); ANION GAP 7 (8-16); ASPARTATE AMINO TRANSFERASE 25 U/L (10-37); BILIRUBIN,TOTAL 0.2 MG/DL (0.1-1.0); BLOOD UREA NITROGEN 22 MG/DL (7-18); BUN/CREATININE RATIO 23.7 (5.4-32.0); CHLORIDE 99 MMOL/L (99-107); CREATININE 0.93 MG/DL (0.60-1.10); GLUCOSE 143 MG/DL (70-104); MAGNESIUM 2.2 MG/DL (1.5-2.4); SODIUM 136 MMOL/L (135-145); TOTAL CARBON DIOXIDE 30.5 MMOL/L (24-32); TOTAL PROTEIN 7.6 G/DL (6.4-8.2); eGFR 81 ML/MIN
[2017-10-27 21:59] LABS: UA COLLECTION TYPE FOLEY CATH
[2017-10-27 22:01] LABS: BACTERIA,URINE FEW /HPF (Neg); RBC,URINE 0-2 /HPF (0-2); SQUAMOUS EPITHELIAL CELL,UR FEW /LPF (FEW); WBC,URINE 0-4 /HPF (0-4)
[2017-10-27] MEDS ORDERED: piperacillin/tazo 3.375gm/50ml 50 ML IV STA (22:11)
[2017-10-27] MEDS: NORepinephrine 8mg/ 250ml NS 250 ML IV SCH (22:22)
[2017-10-27] MEDS ORDERED: normal saline 1000ml 1,000 ML IV ONE ×2 (22:30)
[2017-10-27 22:36] LABS: ANISOCYTOSIS 2+; PLATELET ESTIMATE NORMAL; TOTAL CELLS COUNTED 100
[2017-10-27 22:37] LABS: ELLIPTOCYTES FEW
[2017-10-27 22:38] LABS: TROPONIN I < 0.04 NG/ML (0.0-0.05)
[2017-10-28] VITALS (9 sets, daily range): BP systolic 92–140; BP diastolic 58–83
[2017-10-28] MEDS: piperacillin/tazo 3.375gm/50ml 50 ML IV SCH ×4 (00:03→20:14)
[2017-10-28] MEDS: midazolam 100mg in NS 100ml 100 ML IV PRN ×4 (03:20→14:39)
[2017-10-28] MEDS: propofol 1000mg/100ml bottle 100 ML IV PRN ×3 (04:45→14:38)
[2017-10-28 05:06] LABS: ABG BASE EXCESS 1.8 mmol/L (-2.0-3.0); ABG HCO3 25.6 mmol/L (22.0-26.0); ABG OXYGEN SATURATION 98.6 % (95-98); ABG PCO2 (T) 37.1 mmHg (35.0-48.0); ABG PH (T) 7.457 (7.350-7.450); ABG PO2 (T) 118.3 mmHg (83-108); ALLEN'S TEST Positive; FMetHb 0.3 % (0.3-1.12); FO2Hb 97.3 % (94-100); MINUTE VOLUME 8 L/min; PATIENT TEMPERATURE 36.8; PEEP 5 cm H2O; RESPIRATORY RATE 20 b/min; RESPIRATORY RATE (OBSERVED) 20 b/min; TIDAL VOLUME 400 mL
[2017-10-28 05:57] LABS: BASOPHILS % (AUTO) 0.2 % (0-1); EOSINOPHILS # (AUTO) 0.1 X10'3 (0-0.9); EOSINOPHILS % (AUTO) 0.6 % (0-6); HEMATOCRIT 30.9 % (42.0-52.0); HEMOGLOBIN 10.2 g/dl (14.0-17.9); LYMPHOCYTES # (AUTO) 2.3 X10'3 (1.1-4.8); LYMPHOCYTES % (AUTO) 13.3 % (21-51); MEAN CORPUSCULAR HEMOGLOBIN 23.5 PG (27.0-31.0); MEAN CORPUSCULAR HGB CONC 32.9 % (33.0-36.5); MEAN CORPUSCULAR VOLUME 71.6 FL (78-98); MEAN PLATELET VOLUME 7.5 FL (7.4-10.4); MONOCYTES # (AUTO) 1.3 X10'3 (0-0.9); MONOCYTES % (AUTO) 7.9 % (2-12); NEUTROPHILS # (AUTO) 13.3 X10'3 (1.8-7.7); PLATELET COUNT 261 X10'3 (140-440); RED BLOOD COUNT 4.32 X10'6 (4.70-6.10); RED CELL DISTRIBUTION WIDTH 18.7 % (11.5-14.5)
[2017-10-28 06:33] LABS: ALANINE AMINOTRANSFERASE 62 U/L (12-78); ALBUMIN 2.6 G/DL (3.4-5.0); ALBUMIN/GLOBULIN RATIO 0.8 (1.1-1.5); ALKALINE PHOSPHATASE 73 IU/L (46-116); ANION GAP 9 (8-16); ASPARTATE AMINO TRANSFERASE 24 U/L (10-37); BILIRUBIN,TOTAL 0.2 MG/DL (0.1-1.0); BLOOD UREA NITROGEN 18 MG/DL (7-18); BUN/CREATININE RATIO 27.7 (5.4-32.0); CALCIUM 8.1 MG/DL (8.5-10.1); CHLORIDE 105 MMOL/L (99-107); CREATININE 0.65 MG/DL (0.60-1.10); GLUCOSE 143 MG/DL (70-104); SODIUM 140 MMOL/L (135-145); TOTAL CARBON DIOXIDE 26.4 MMOL/L (24-32); TOTAL PROTEIN 5.9 G/DL (6.4-8.2); eGFR > 90 ML/MIN
[2017-10-28] MEDS: NORepinephrine 8mg/ 250ml NS 250 ML IV SCH (11:45)
[2017-10-28] MEDS ORDERED: methylPREDNISolone sod succ 125mg/2ml vial IV ONE (13:25)
[2017-10-28] MEDS: morphine/NS 100mg/100ml bag 100 ML IV SCH ×2 (13:43→14:37)
[2017-10-28] MEDS ORDERED: ipratropium/albuterol 3ml nebule NEB PRN (14:05)
[2017-10-28] MEDS ORDERED: magnesium 2GM in 50ml NS 50 ML IV PRN (14:05)
[2017-10-28] MEDS ORDERED: magnesium 4gm in 100ml NS 100 ML IV PRN (14:05)
[2017-10-28] MEDS ORDERED: potassium Cl 40MEQ/NS 500ml 500 ML IV PRN ×2 (14:05)
[2017-10-28] MEDS ORDERED: potassium Cl 40MEQ/250ML bag 250 ML IV PRN ×2 (14:05)
[2017-10-28 14:18] LABS: MAGNESIUM 2.1 MG/DL (1.5-2.4); PHOSPHORUS 3.8 MG/DL (2.3-4.5)
[2017-10-28] MEDS: pantoprazole 40 MG vial IV SCH (14:39)
[2017-10-28] MEDS: enoxaparin 40mg/0.4ml syringe SUBCUT SCH (14:40)
[2017-10-28] MEDS: normal saline 1000ml 1,000 ML IV SCH (14:40)
[2017-10-28] MEDS: K, MAG and/or Phos replacement - Verify level? MC SCH (15:10)
[2017-10-28] MEDS: ipratropium/albuterol 3ml nebule NEB SCH ×2 (15:26→20:07)
[2017-10-28] MEDS: lactobacillus rhamnosus 10,000 MMU CELLS/CAPSULE PO SCH (20:14)
[2017-10-29] VITALS (21 sets, daily range): BP systolic 104–152; BP diastolic 65–89
[2017-10-29] MEDS: piperacillin/tazo 3.375gm/50ml 50 ML IV SCH ×4 (02:12→20:09)
[2017-10-29] MEDS: normal saline 1000ml 1,000 ML IV SCH ×2 (02:13→17:18)
[2017-10-29] MEDS: midazolam 100mg in NS 100ml 100 ML IV PRN (03:09)
[2017-10-29 04:19] LABS: BASOPHILS % (AUTO) 0.2 % (0-1); EOSINOPHILS # (AUTO) 0.2 X10'3 (0-0.9); EOSINOPHILS % (AUTO) 1.8 % (0-6); HEMATOCRIT 29.7 % (42.0-52.0); HEMOGLOBIN 9.7 g/dl (14.0-17.9); LYMPHOCYTES # (AUTO) 1.5 X10'3 (1.1-4.8); MEAN CORPUSCULAR HEMOGLOBIN 23.4 PG (27.0-31.0); MEAN CORPUSCULAR HGB CONC 32.6 % (33.0-36.5); MEAN CORPUSCULAR VOLUME 71.9 FL (78-98); MEAN PLATELET VOLUME 7.5 FL (7.4-10.4); MONOCYTES # (AUTO) 0.6 X10'3 (0-0.9); MONOCYTES % (AUTO) 5.1 % (2-12); NEUTROPHILS # (AUTO) 9.8 X10'3 (1.8-7.7); NEUTROPHILS % (AUTO) 80.9 % (42-75); PLATELET COUNT 243 X10'3 (140-440); RED BLOOD COUNT 4.13 X10'6 (4.70-6.10); RED CELL DISTRIBUTION WIDTH 19.5 % (11.5-14.5); WHITE BLOOD COUNT 12.1 X10'3 (4.5-11.0)
[2017-10-29 04:35] LABS: ABG BASE EXCESS -0.9 mmol/L (-2.0-3.0); ABG HCO3 22.9 mmol/L (22.0-26.0); ABG OXYGEN SATURATION 97.2 % (95-98); ABG PH (T) 7.444 (7.350-7.450); ABG PO2 (T) 92.2 mmHg (83-108); FCOHb 0.5 % (0.5-1.5); FMetHb 0.3 % (0.3-1.12); FO2Hb 96.4 % (94-100); MINUTE VOLUME 8 L/min; PATIENT TEMPERATURE 36.4; PEEP 5 cm H2O; RESPIRATORY RATE 18 b/min; RESPIRATORY RATE (OBSERVED) 18 b/min; TIDAL VOLUME 400 mL; TOTAL HEMOGLOBIN 10.7 G/dl (14.0-18.0)
[2017-10-29 04:37] LABS: ALANINE AMINOTRANSFERASE 56 U/L (12-78); ALBUMIN 2.3 G/DL (3.4-5.0); ALBUMIN/GLOBULIN RATIO 0.7 (1.1-1.5); ALKALINE PHOSPHATASE 72 IU/L (46-116); ANION GAP 7 (8-16); ASPARTATE AMINO TRANSFERASE 16 U/L (10-37); BILIRUBIN,TOTAL 0.3 MG/DL (0.1-1.0); BLOOD UREA NITROGEN 13 MG/DL (7-18); BUN/CREATININE RATIO 24.1 (5.4-32.0); CALCIUM 8.2 MG/DL (8.5-10.1); CHLORIDE 106 MMOL/L (99-107); CREATININE 0.54 MG/DL (0.60-1.10); GLUCOSE 115 MG/DL (70-104); POTASSIUM 4.1 MMOL/L (3.5-5.1); SODIUM 139 MMOL/L (135-145); TOTAL CARBON DIOXIDE 25.9 MMOL/L (24-32); TOTAL PROTEIN 5.5 G/DL (6.4-8.2); eGFR > 90 ML/MIN
[2017-10-29] MEDS: ipratropium/albuterol 3ml nebule NEB SCH ×3 (07:21→20:38)
[2017-10-29] MEDS: K, MAG and/or Phos replacement - Verify level? MC SCH (08:00)
[2017-10-29] MEDS: pantoprazole 40 MG vial IV SCH (08:28)
[2017-10-29] MEDS: lactobacillus rhamnosus 10,000 MMU CELLS/CAPSULE PO SCH ×2 (08:37→20:15)
[2017-10-29] MEDS: enoxaparin 40mg/0.4ml syringe SUBCUT SCH (08:38)
[2017-10-29] MEDS ORDERED: ipratropium/albuterol 3ml nebule NEB PRN (09:10)
[2017-10-29] MEDS ORDERED: methylPREDNISolone sod succ 125mg/2ml vial IV STA (10:22)
[2017-10-29] MEDS ORDERED: ATR0.5NEB IH (13:46)
[2017-10-29] MEDS ORDERED: LORA0.5T (13:47)
[2017-10-29] MEDS ORDERED: TAMS0.4C32 (13:47)
[2017-10-29] MEDS ORDERED: LABE100T (13:47)
[2017-10-29] MEDS: methylPREDNISolone sod succ 125mg/2ml vial IV SCH ×2 (14:09→20:14)
[2017-10-29] MEDS: LORazepam 1 MG tablet PO PRN (18:12)
[2017-10-29] MEDS: ibuprofen tablet 400 MG TABLET PO SCH (19:03)
[2017-10-29] MEDS: mineral oil/petrolatum ophthal oint EACHEYE SCH (20:00)
[2017-10-30] MEDS: mineral oil/petrolatum ophthal oint EACHEYE SCH ×4 (02:00→20:00)
[2017-10-30] MEDS: piperacillin/tazo 3.375gm/50ml 50 ML IV SCH ×4 (02:29→20:19)
[2017-10-30] MEDS: methylPREDNISolone sod succ 125mg/2ml vial IV SCH ×4 (02:30→20:17)
[2017-10-30 03:00] VITALS: BP 128/85
[2017-10-30] MEDS: ipratropium/albuterol 3ml nebule NEB SCH ×4 (03:56→20:59)
[2017-10-30] MEDS: LORazepam 1 MG tablet PO PRN ×3 (05:11→21:35)
[2017-10-30 06:00] VITALS: BP 142/69
[2017-10-30] MEDS: ibuprofen tablet 400 MG TABLET PO SCH ×3 (07:11→17:11)
[2017-10-30] MEDS: lactobacillus rhamnosus 10,000 MMU CELLS/CAPSULE PO SCH ×2 (07:11→20:17)
[2017-10-30] MEDS: pantoprazole 40 MG vial IV SCH (07:11)
[2017-10-30] MEDS: enoxaparin 40mg/0.4ml syringe SUBCUT SCH (07:12)
[2017-10-30] MEDS: normal saline 1000ml 1,000 ML IV SCH ×2 (07:13→21:35)
[2017-10-30] MEDS: K, MAG and/or Phos replacement - Verify level? MC SCH (07:19)
[2017-10-30 09:37] LABS: BASOPHILS % (AUTO) 0 % (0-1); EOSINOPHILS # (AUTO) 0.2 X10'3 (0-0.9); EOSINOPHILS % (AUTO) 1.3 % (0-6); HEMATOCRIT 32.9 % (42.0-52.0); HEMOGLOBIN 10.6 g/dl (14.0-17.9); LYMPHOCYTES # (AUTO) 0.8 X10'3 (1.1-4.8); LYMPHOCYTES % (AUTO) 6.3 % (21-51); MEAN CORPUSCULAR HEMOGLOBIN 23.4 PG (27.0-31.0); MEAN CORPUSCULAR HGB CONC 32.3 % (33.0-36.5); MEAN CORPUSCULAR VOLUME 72.5 FL (78-98); MEAN PLATELET VOLUME 7.7 FL (7.4-10.4); MONOCYTES # (AUTO) 0.2 X10'3 (0-0.9); MONOCYTES % (AUTO) 1.6 % (2-12); NEUTROPHILS # (AUTO) 11.8 X10'3 (1.8-7.7); NEUTROPHILS % (AUTO) 90.8 % (42-75); PLATELET COUNT 261 X10'3 (140-440); RED BLOOD COUNT 4.54 X10'6 (4.70-6.10); RED CELL DISTRIBUTION WIDTH 19.4 % (11.5-14.5)
[2017-10-30 09:53] LABS: ALANINE AMINOTRANSFERASE 59 U/L (12-78); ALBUMIN 2.8 G/DL (3.4-5.0); ALBUMIN/GLOBULIN RATIO 0.7 (1.1-1.5); ALKALINE PHOSPHATASE 79 IU/L (46-116); ANION GAP 12 (8-16); ASPARTATE AMINO TRANSFERASE 19 U/L (10-37); BILIRUBIN,TOTAL 0.3 MG/DL (0.1-1.0); BLOOD UREA NITROGEN 19 MG/DL (7-18); BUN/CREATININE RATIO 18.8 (5.4-32.0); CALCIUM 8.5 MG/DL (8.5-10.1); CHLORIDE 103 MMOL/L (99-107); CREATININE 1.01 MG/DL (0.60-1.10); GLUCOSE 208 MG/DL (70-104); MAGNESIUM 1.9 MG/DL (1.5-2.4); POTASSIUM 3.8 MMOL/L (3.5-5.1); SODIUM 140 MMOL/L (135-145); TOTAL CARBON DIOXIDE 24.8 MMOL/L (24-32); TOTAL PROTEIN 6.6 G/DL (6.4-8.2); eGFR 73 ML/MIN
[2017-10-30 11:00] VITALS: BP 118/61
[2017-10-30 15:00] VITALS: BP 135/68
[2017-10-30 19:00] VITALS: BP 118/64
[2017-10-31] MEDS: mineral oil/petrolatum ophthal oint EACHEYE SCH ×4 (02:00→20:00)
[2017-10-31] MEDS: ipratropium/albuterol 3ml nebule NEB SCH ×4 (02:10→21:45)
[2017-10-31 03:00] VITALS: BP 133/64
[2017-10-31] MEDS: piperacillin/tazo 3.375gm/50ml 50 ML IV SCH ×4 (03:15→20:19)
[2017-10-31] MEDS: methylPREDNISolone sod succ 125mg/2ml vial IV SCH ×4 (03:15→20:18)
[2017-10-31 05:20] LABS: BASOPHILS % (AUTO) 0 % (0-1); EOSINOPHILS # (AUTO) 0.2 X10'3 (0-0.9); EOSINOPHILS % (AUTO) 1.7 % (0-6); HEMATOCRIT 32.1 % (42.0-52.0); HEMOGLOBIN 10.6 g/dl (14.0-17.9); LYMPHOCYTES # (AUTO) 1.1 X10'3 (1.1-4.8); LYMPHOCYTES % (AUTO) 8.8 % (21-51); MEAN CORPUSCULAR HEMOGLOBIN 23.5 PG (27.0-31.0); MEAN CORPUSCULAR HGB CONC 32.9 % (33.0-36.5); MEAN CORPUSCULAR VOLUME 71.6 FL (78-98); MEAN PLATELET VOLUME 7.7 FL (7.4-10.4); MONOCYTES # (AUTO) 0.5 X10'3 (0-0.9); NEUTROPHILS # (AUTO) 11.1 X10'3 (1.8-7.7); NEUTROPHILS % (AUTO) 85.5 % (42-75); PLATELET COUNT 255 X10'3 (140-440); RED BLOOD COUNT 4.49 X10'6 (4.70-6.10); RED CELL DISTRIBUTION WIDTH 19.1 % (11.5-14.5)
[2017-10-31 05:59] LABS: ALANINE AMINOTRANSFERASE 51 U/L (12-78); ALBUMIN 2.9 G/DL (3.4-5.0); ALBUMIN/GLOBULIN RATIO 0.8 (1.1-1.5); ALKALINE PHOSPHATASE 69 IU/L (46-116); ANION GAP 11 (8-16); ASPARTATE AMINO TRANSFERASE 13 U/L (10-37); BILIRUBIN,TOTAL 0.3 MG/DL (0.1-1.0); BLOOD UREA NITROGEN 17 MG/DL (7-18); BUN/CREATININE RATIO 21.5 (5.4-32.0); CALCIUM 8.6 MG/DL (8.5-10.1); CHLORIDE 104 MMOL/L (99-107); CREATININE 0.79 MG/DL (0.60-1.10); GLUCOSE 145 MG/DL (70-104); POTASSIUM 3.8 MMOL/L (3.5-5.1); SODIUM 141 MMOL/L (135-145); TOTAL PROTEIN 6.4 G/DL (6.4-8.2); eGFR > 90 ML/MIN
[2017-10-31 06:00] VITALS: BP 167/89
[2017-10-31] MEDS: lactobacillus rhamnosus 10,000 MMU CELLS/CAPSULE PO SCH ×2 (07:18→20:19)
[2017-10-31] MEDS: pantoprazole 40mg Tablet.DR PO SCH (07:18)
[2017-10-31] MEDS: enoxaparin 40mg/0.4ml syringe SUBCUT SCH (07:19)
[2017-10-31] MEDS: K, MAG and/or Phos replacement - Verify level? MC SCH (08:00)
[2017-10-31] MEDS: ibuprofen tablet 400 MG TABLET PO SCH ×3 (08:30→17:30)
[2017-10-31] MEDS: normal saline 1000ml 1,000 ML IV SCH ×2 (08:48→20:19)
[2017-10-31 11:00] VITALS: BP 95/65
[2017-10-31] MEDS: LORazepam 1 MG tablet PO PRN (14:27)
[2017-10-31 15:00] VITALS: BP 152/77
[2017-10-31] MEDS ORDERED: MISCELLANEOUS ORAL SOLID IH ONE (16:40)
[2017-10-31 18:15] VITALS: BP 147/79
[2017-10-31] MEDS ORDERED: glucagon, human recombinant 1mg kit SUBCUT PRN (21:35)
[2017-10-31] MEDS ORDERED: dextrose 50%-water 50ml dispensing syringe IV PRN ×2 (21:35)
[2017-10-31] MEDS ORDERED: dextrose ORAL solution 15 GM/59 ML bottle PO PRN ×2 (21:35)
[2017-10-31] MEDS ORDERED: insulin Lispro (HumaLOG) vial - multi-dose SQ SCH (21:35)
[2017-10-31 22:15] VITALS: BP 165/87
[2017-11-01] MEDS: mineral oil/petrolatum ophthal oint EACHEYE SCH ×3 (02:00→13:17)
[2017-11-01] MEDS: piperacillin/tazo 3.375gm/50ml 50 ML IV SCH ×3 (02:20→14:00)
[2017-11-01] MEDS: methylPREDNISolone sod succ 125mg/2ml vial IV SCH ×3 (02:20→13:59)
[2017-11-01 02:30] VITALS: BP 123/74
[2017-11-01] MEDS: ipratropium/albuterol 3ml nebule NEB SCH ×3 (02:55→14:40)
[2017-11-01 05:57] LABS: BASOPHILS % (AUTO) 0 % (0-1); EOSINOPHILS # (AUTO) 0.2 X10'3 (0-0.9); EOSINOPHILS % (AUTO) 1.7 % (0-6); HEMATOCRIT 32.2 % (42.0-52.0); HEMOGLOBIN 10.6 g/dl (14.0-17.9); LYMPHOCYTES # (AUTO) 0.8 X10'3 (1.1-4.8); LYMPHOCYTES % (AUTO) 6.3 % (21-51); MEAN CORPUSCULAR HEMOGLOBIN 23.8 PG (27.0-31.0); MEAN CORPUSCULAR HGB CONC 33.1 % (33.0-36.5); MEAN PLATELET VOLUME 8.2 FL (7.4-10.4); MONOCYTES # (AUTO) 0.5 X10'3 (0-0.9); MONOCYTES % (AUTO) 4.1 % (2-12); NEUTROPHILS # (AUTO) 10.7 X10'3 (1.8-7.7); NEUTROPHILS % (AUTO) 87.9 % (42-75); PLATELET COUNT 261 X10'3 (140-440); RED BLOOD COUNT 4.47 X10'6 (4.70-6.10); RED CELL DISTRIBUTION WIDTH 18.7 % (11.5-14.5); WHITE BLOOD COUNT 12.2 X10'3 (4.5-11.0)
[2017-11-01 06:00] VITALS: BP 136/70
[2017-11-01 06:18] LABS: ALANINE AMINOTRANSFERASE 53 U/L (12-78); ALBUMIN 2.9 G/DL (3.4-5.0); ALBUMIN/GLOBULIN RATIO 0.9 (1.1-1.5); ALKALINE PHOSPHATASE 61 IU/L (46-116); ANION GAP 11 (8-16); ASPARTATE AMINO TRANSFERASE 15 U/L (10-37); BILIRUBIN,TOTAL 0.2 MG/DL (0.1-1.0); BLOOD UREA NITROGEN 19 MG/DL (7-18); BUN/CREATININE RATIO 26.4 (5.4-32.0); CALCIUM 8.8 MG/DL (8.5-10.1); CHLORIDE 103 MMOL/L (99-107); CREATININE 0.72 MG/DL (0.60-1.10); GLUCOSE 142 MG/DL (70-104); MAGNESIUM 1.9 MG/DL (1.5-2.4); POTASSIUM 3.5 MMOL/L (3.5-5.1); SODIUM 140 MMOL/L (135-145); TOTAL CARBON DIOXIDE 26.2 MMOL/L (24-32); TOTAL PROTEIN 6.3 G/DL (6.4-8.2); eGFR > 90 ML/MIN
[2017-11-01] MEDS: enoxaparin 40mg/0.4ml syringe SUBCUT SCH (07:46)
[2017-11-01] MEDS: pantoprazole 40mg Tablet.DR PO SCH (07:47)
[2017-11-01] MEDS: lactobacillus rhamnosus 10,000 MMU CELLS/CAPSULE PO SCH (07:47)
[2017-11-01] MEDS: ibuprofen tablet 400 MG TABLET PO SCH ×2 (07:49→12:30)
[2017-11-01] MEDS: K, MAG and/or Phos replacement - Verify level? MC SCH (07:51)
[2017-11-01 11:00] VITALS: BP 124/67
[2017-11-01] MEDS: normal saline 1000ml 1,000 ML IV SCH (11:28)
[2017-11-01] MEDS ORDERED: TIOT4MIS3 INH (13:51)
[2017-11-01] MEDS: LORazepam 1 MG tablet PO PRN (14:00)
[2017-11-01 15:00] VITALS: BP 147/85
[2017-11-01] MEDS ORDERED: insulin glargine (Lantus) pen - multi-dose SQ SCH (21:00)
== END 2017-11-01 18:13 | disposition home or self-care (01) | DRG 208 ==
LOC: ER 21:05 → ED HOLD 23:43 → ICU 2S 10-28 15:33 → PCU 3S 10-29 19:32
PROVIDERS: ADMIT Internal Medicine; ATTEND Internal Medicine Critical Care Medicine
PROC: 5A09357 Assistance with Respiratory Ventilation, Less than 24 Consecutive Hours, Continuous Positive Airway Pressure (ICD-10-PCS; principal; 2017-10-27)
PROC: 5A1945Z Respiratory Ventilation, 24-96 Consecutive Hours (ICD-10-PCS; 2017-10-27)
PROC: 0BH17EZ Insertion of Endotracheal Airway into Trachea, Via Natural or Artificial Opening (ICD-10-PCS; 2017-10-27)
PROC: 02HV33Z Insertion of Infusion Device into Superior Vena Cava, Percutaneous Approach (ICD-10-PCS; 2017-10-28)
DX: J96.21 Acute and chronic respiratory failure with hypoxia (principal); J44.1 Chronic obstructive pulmonary disease with (acute) exacerbation; I10 Essential (primary) hypertension; I45.10 Unspecified right bundle-branch block; Z87.891 Personal history of nicotine dependence; Z79.899 Other long term (current) drug therapy
CPT/HCPCS: 36415; 36556; 36600; 71045; 80053; 81001; 82803; 82948; 83605; 83735; 83880; 84100; 84145; 84484; 85018; 85025; 85610; 85730; 87040; 87070; 93005; 94002; 94003; 94640; 94760; 96360; 96365; 97116; 97161; 99291; 99292; A4333; A6212; A6213; A7015; C9113; J1650; J1815; J2250; J2270; J2543; J2704; J2930; J3490; J7030

== ENCOUNTER 2019-05-04 12:50 | Inpatient (IN) | payer MEDICARE ==
[~2019-05-04] VITALS: Ht 167.6 cm; Wt 52.5 kg
[~2019-05-04 12:50] MED LIST changes: -ALBU6.7H INH; +ALBU6.7H9 INH; +ATR0.5NEB IH; -BENZ-49 PO; -GUAI600T45 PO; +LABE100T5; +LORA0.5T; -MONT10TA24 PO; +TAMS0.4C32 PO; +TIOT4MIS3 INH; -etomidate 2mg/ml inj. ONE; -rocuronium 10mg/ml inj IV ONE; -sod chloride 0.9% 10ml flush syringe IV ONE
[2019-05-04] MEDS ORDERED: methylPREDNISolone sod succ 125mg/2ml vial IV ONE (13:15)
[2019-05-04] MEDS ORDERED: ipratropium/albuterol 3ml nebule NEB ONE (13:15)
[2019-05-04 13:37] LABS: BASOPHILS % (AUTO) 0.7 % (0-1); EOSINOPHILS # (AUTO) 0.3 X10'3 (0-0.9); EOSINOPHILS % (AUTO) 4.8 % (0-6); HEMATOCRIT 39.4 % (42.0-52.0); HEMOGLOBIN 12.7 g/dl (14.0-17.9); LYMPHOCYTES # (AUTO) 1.5 X10'3 (1.1-4.8); LYMPHOCYTES % (AUTO) 20.6 % (21-51); MEAN CORPUSCULAR HEMOGLOBIN 22.9 PG (27.0-31.0); MEAN CORPUSCULAR HGB CONC 32.3 g/dL (33.0-36.5); MEAN CORPUSCULAR VOLUME 70.8 FL (78-98); MEAN PLATELET VOLUME 7.6 FL (7.4-10.4); MONOCYTES # (AUTO) 0.7 X10'3 (0-0.9); MONOCYTES % (AUTO) 10.1 % (2-12); NEUTROPHILS # (AUTO) 4.5 X10'3 (1.8-7.7); NEUTROPHILS % (AUTO) 63.8 % (42-75); PLATELET COUNT 280 X10'3 (140-440); RED BLOOD COUNT 5.56 X10'6 (4.70-6.10); RED CELL DISTRIBUTION WIDTH 15.3 % (11.5-14.5); WHITE BLOOD COUNT 7.1 X10'3 (4.5-11.0)
[2019-05-04 13:51] LABS: PARTIAL THROMBOPLASTIN TIME 26 SECONDS (22-32)
[2019-05-04 13:56] LABS: ALANINE AMINOTRANSFERASE 26 U/L (12-78); ALBUMIN 3.5 G/DL (3.4-5.0); ALBUMIN/GLOBULIN RATIO 1.2 (1.1-1.5); ALKALINE PHOSPHATASE 76 IU/L (46-116); ANION GAP 6 (8-16); ASPARTATE AMINO TRANSFERASE 21 U/L (10-37); BILIRUBIN,TOTAL 0.4 MG/DL (0.1-1.0); BLOOD UREA NITROGEN 10 MG/DL (7-18); BUN/CREATININE RATIO 10.3 (5.4-32.0); CHLORIDE 104 MMOL/L (99-107); CREATININE 0.97 MG/DL (0.60-1.10); GLUCOSE 79 MG/DL (70-104); POTASSIUM 4.6 MMOL/L (3.5-5.1); SODIUM 140 MMOL/L (135-145); TOTAL CARBON DIOXIDE 29.9 MMOL/L (24-32); TOTAL PROTEIN 6.4 G/DL (6.4-8.2); eGFR 77 ML/MIN
[2019-05-04] MEDS ORDERED: metoprolol tartrate 1mg/ml inj IV PRN (14:20)
[2019-05-04] MEDS ORDERED: potassium Cl 20 mEq SR tablet PO PRN ×2 (14:20)
[2019-05-04] MEDS ORDERED: regadenoson 0.4mg/5ml syringe IV ONE (14:20)
[2019-05-04] MEDS ORDERED: morphine 2 MG/ML inj. syringe IV PRN ×2 (14:20)
[2019-05-04] MEDS ORDERED: potassium CL 10mEq/100ml bag 100 ML IV PRN ×2 (14:20)
[2019-05-04] MEDS ORDERED: magnesium 4gm in 100ml NS 100 ML IV PRN (14:20)
[2019-05-04] MEDS ORDERED: acetaminophen 325mg tablet PO PRN ×2 (14:20)
[2019-05-04] MEDS ORDERED: aminophylline 250mg/10ml inj. IV PRN (14:20)
[2019-05-04] MEDS ORDERED: nitroGLYCERIN 0.4mg SUBLingual tab SL PRN (14:20)
[2019-05-04] MEDS ORDERED: aspirin 81mg tab.chew PO ONE (14:20)
[2019-05-04] MEDS ORDERED: magnesium hydroxide 30ml (MOM) UD suspension PO PRN (14:20)
[2019-05-04] MEDS ORDERED: ondansetron/PF 4mg/2ml inj IV PRN (14:20)
[2019-05-04] MEDS ORDERED: HYDROcodone/acetaminophen 10/325mg tab PO PRN (14:20)
[2019-05-04] MEDS ORDERED: magnesium 2GM in 50ml NS 50 ML IV PRN (14:20)
[2019-05-04] MEDS ORDERED: magnesium Cl slow-release 64mg tablet PO PRN (14:20)
[2019-05-04] MEDS: K and/or MAG REPLACEMENT MC SCH (14:20)
[2019-05-04] MEDS ORDERED: benzonatate 100mg capsule PO ONE (14:30)
[2019-05-04] MEDS: normal saline 1000ml 1,000 ML IV SCH (14:41)
[2019-05-04] MEDS ORDERED: LORA0.5T PO (14:58)
[2019-05-04] MEDS ORDERED: ALBU8.5H8 IH (14:58)
[2019-05-04] MEDS ORDERED: IPRA3AMP31 IH (14:58)
[2019-05-04] MEDS ORDERED: METO25TA6 PO (14:58)
[2019-05-04] MEDS: levoFLOXACIN-Levaquin 750MG/D5 150 ML IV SCH (15:03)
[2019-05-04] MEDS ORDERED: HYDROcodone & chlorphen. 10-8mg/5ml oral susp. PO SCH (15:05)
[2019-05-04] MEDS ORDERED: iohexol 350MG/ML 100ml bottle IV ONE (15:12)
--- NOTE | 2019-05-04 16:08 | NUR ---
Patient in room . I have received report from Yelena ARNOLD and had the opportunity to ask questions and assume patient care.
[2019-05-04] MEDS: ipratropium/albuterol 3ml nebule NEB SCH ×3 (16:13→23:04)
--- NOTE | 2019-05-04 16:16 | NUR ---
Pt to be transported to the admission bed as soon as the nebulizer treatment is completed.
--- NOTE | 2019-05-04 16:40 | NUR ---
Patient arrived to the unit accompanied by ED personnel. Telemetry monitoring initiated, vital signs obtained, belongings placed at the bedside, and patient oriented to the room and call light. Will continue to monitor.
[2019-05-04 17:02] LABS: HEMOGLOBIN A1C 5.7 % (4.5-6.2)
[2019-05-04 18:00] VITALS: BP 127/77
--- NOTE | 2019-05-04 18:13 | NUR ---
Patient report given, questions answered & plan of care reviewed with Nunu ARNOLD .
--- NOTE | 2019-05-04 18:21 | NUR ---
Orientee documentation: I have reviewed and agree with all interventions, assessments performed and documented by Laina ARNOLD. [facility]ee Medication Administration: For this medication-pass time frame, all medication were reviewed, dispensed, administered and documented per hospital policy by Laina ARNOLD.
[2019-05-04 19:00] VITALS: BP 127/77
--- NOTE | 2019-05-04 19:00 | NUR ---
Patient in room PCU 3017. I have received report from Ale RN, Reanna RN and had the opportunity to ask questions and assume patient care.
[2019-05-04] MEDS: methylPREDNISolone sod succ 125mg/2ml vial IV SCH (19:53)
[2019-05-04] MEDS: heparin, porcine 5000 units/ml vial SQ SCH (19:54)
[2019-05-04] MEDS: lactobacillus rhamnosus 10,000 MMU CELLS/CAPSULE PO SCH (19:54)
[2019-05-04] MEDS ORDERED: temazepam 15mg capsule PO PRN (21:00)
[2019-05-04 23:00] VITALS: BP 126/81
[2019-05-04] MEDS ORDERED: LORazepam 0.5 MG tablet PO PRN (23:25)
[2019-05-04 23:53] VITALS: BP 126/81
[2019-05-05] VITALS (12 sets, daily range): BP systolic 103–138; BP diastolic 61–76
[2019-05-05] MEDS ORDERED: regadenoson 0.4mg/5ml syringe IV PRN (00:10)
[2019-05-05 01:23] LABS: BASOPHILS % (AUTO) 0.2 % (0-1); EOSINOPHILS % (AUTO) 0.1 % (0-6); HEMATOCRIT 37.4 % (42.0-52.0); HEMOGLOBIN 12.1 g/dl (14.0-17.9); LYMPHOCYTES # (AUTO) 0.7 X10'3 (1.1-4.8); LYMPHOCYTES % (AUTO) 10.9 % (21-51); MEAN CORPUSCULAR HEMOGLOBIN 22.5 PG (27.0-31.0); MEAN CORPUSCULAR HGB CONC 32.3 g/dL (33.0-36.5); MEAN CORPUSCULAR VOLUME 69.7 FL (78-98); MONOCYTES # (AUTO) 0.1 X10'3 (0-0.9); MONOCYTES % (AUTO) 1.5 % (2-12); NEUTROPHILS # (AUTO) 5.4 X10'3 (1.8-7.7); NEUTROPHILS % (AUTO) 87.3 % (42-75); PLATELET COUNT 279 X10'3 (140-440); RED BLOOD COUNT 5.37 X10'6 (4.70-6.10); WHITE BLOOD COUNT 6.2 X10'3 (4.5-11.0)
[2019-05-05 01:34] LABS: ALANINE AMINOTRANSFERASE 24 U/L (12-78); ALBUMIN 3.3 G/DL (3.4-5.0); ALBUMIN/GLOBULIN RATIO 1.2 (1.1-1.5); ALKALINE PHOSPHATASE 69 IU/L (46-116); ANION GAP 11 (8-16); ASPARTATE AMINO TRANSFERASE 19 U/L (10-37); BILIRUBIN,TOTAL 0.3 MG/DL (0.1-1.0); BLOOD UREA NITROGEN 13 MG/DL (7-18); BUN/CREATININE RATIO 12.7 (5.4-32.0); CALCIUM 8.7 MG/DL (8.5-10.1); CHLORIDE 101 MMOL/L (99-107); CHOL/HDL RATIO 2.3 (0.00-4.99); CHOLESTEROL 147 MG/DL (0-200); CREATININE 1.02 MG/DL (0.60-1.10); GLUCOSE 153 MG/DL (70-104); HDL CHOLESTEROL 64 MG/DL (35-60); LDL CHOLESTEROL 79 MG/DL (50-100); MAGNESIUM 1.7 MG/DL (1.5-2.4); PHOSPHORUS 2.9 MG/DL (2.3-4.5); POTASSIUM 3.9 MMOL/L (3.5-5.1); SODIUM 137 MMOL/L (135-145); TOTAL CARBON DIOXIDE 24.8 MMOL/L (24-32); TOTAL PROTEIN 6.1 G/DL (6.4-8.2); TRIGLYCERIDES 29 MG/DL (20-135); eGFR 72 ML/MIN
[2019-05-05] MEDS: methylPREDNISolone sod succ 125mg/2ml vial IV SCH ×4 (01:56→19:50)
[2019-05-05] MEDS: ipratropium/albuterol 3ml nebule NEB SCH ×6 (02:44→23:19)
[2019-05-05] MEDS ORDERED: HYDROcodone & chlorphen. 10-8mg/5ml oral susp. PO PRN ×2 (03:00→03:10)
[2019-05-05] MEDS: HYDROcodone/acetaminophen 5mg/325mg tablet PO PRN ×2 (03:32→19:54)
[2019-05-05] MEDS: normal saline 1000ml 1,000 ML IV SCH ×2 (03:32→19:51)
--- NOTE | 2019-05-05 06:06 | NUR ---
Problems reprioritized. Patient report given, questions answered & plan of care reviewed with Laina Aguilera RN.
--- NOTE | 2019-05-05 06:13 | NUR ---
Patient in room PCU 3017. I have received report from Nunu ARNOLD and had the opportunity to ask questions and assume patient care.
--- NOTE | 2019-05-05 07:58 | NUR ---
Page sent to Dr. Bolanos: PAGER ID: [phone] MESSAGE: [id number] Jeffrey Ledesma: The nuclear med RN is suggesting we give the pt a cough suppressant before the Skye to get a better scan, can we have a PRN med? Thanks, Ale [phone]
[2019-05-05] MEDS: metoprolol tartrate 25mg tablet PO SCH ×2 (08:00→19:52)
[2019-05-05] MEDS: K and/or MAG REPLACEMENT MC SCH (08:00)
[2019-05-05] MEDS: levoFLOXACIN-Levaquin 750MG/D5 150 ML IV SCH (08:10)
[2019-05-05] MEDS: tamsulosin 0.4mg capsule PO SCH (08:11)
[2019-05-05] MEDS: lactobacillus rhamnosus 10,000 MMU CELLS/CAPSULE PO SCH ×2 (08:11→19:50)
[2019-05-05] MEDS: heparin, porcine 5000 units/ml vial SQ SCH ×2 (08:12→19:51)
--- NOTE | 2019-05-05 12:03 | NUR ---
Page Dr. Bolanos PAGER ID: [phone] MESSAGE: Room 3017A Jeffrey Ledesma: Patient's Skye scan results are in ; no wall motion abnormality, left ventricular ejection fraction 80% and no evidence of fixed or reversible myocardial ischemia. . Thank you, Laina ext [phone].
--- NOTE | 2019-05-05 14:48 | NUR ---
Malnutrition consult, per consult "patient needs new dentures, says it prevents him from eating." Last documented weight from 11/02/17 at 51.8 kg, current patient stated weight is at 50 kg. Patient was able to eat 100% of heart healthy dinner last night, did not eat breakfast due to being NPO at that time. Presented to ED with shortness of breath, admitted for treatment of COPD exacerbation. Patient and seen at bedside, endorses difficulty chewing and requests soft to chew foods, does not want anything chopped or ground. Patient and report that at home he drinks carnation instant breakfast or ensure, eats soups, adds butter and oils to food for additional calories for weight gain. Discussed strategies such as eating nutrition dense foods, interested in making smoothies and adding bananas and peanut butter. Recommended to continue current strategies for weight gain. Pt interested in having ensure while here, notified MD. Patient with visible muscle and fat loss, reports in past year weight fluctuates between 115 and 120, is now 110 lbs. Meets criteria for malnutrition. Provided pt with written malnutrition education handout with verbal review. Notified dietary of soft to chew preference. Will continue to follow. Recommend: 1. continue heart healthy diet 2. send soft to chew foods 3. ensure with meals 4. weight per rx Addendum: 05/05/19 at [address] Amended: Links added.
--- NOTE | 2019-05-05 15:26 | NUR ---
Page Dr. Bolanos PAGER ID: [phone] MESSAGE: Room 3017A Jeffrey Ledesma: Patient is mouth breathing due to nasal congestion. Could we get him something to help clear up the congestion? Thank you, Laina ext [phone].
--- NOTE | 2019-05-05 17:59 | NUR ---
Page Dr. Bolanos PAGER ID: [phone] MESSAGE: Room 3017A Jeffrey Ledesma: Patient is requesting to have a different diet. He has trouble eating the food on HH, says it is very low in fat. Patient only weighs 51kg. Could we get regular diet? Thank you, Laina ext [phone].
--- NOTE | 2019-05-05 18:00 | NUR ---
Patient in room PCU 3017. I have received report from CLAYTON Marina and had the opportunity to ask questions and assume patient care.
--- NOTE | 2019-05-05 18:13 | NUR ---
Problems reprioritized. Patient report given, questions answered & plan of care reviewed with Nunu ARNOLD & Caprice ARNOLD.
--- NOTE | 2019-05-05 19:01 | NUR ---
Patient in room PCU 3017. I have received report from Ale RN, Fahad RN and had the opportunity to ask questions and assume patient care.
[2019-05-05] MEDS: mag hydrox/Alum hydrox/simeth 30ml oral suspension PO PRN (21:57)
[2019-05-05] MEDS: diphenhydrAMINE 25mg capsule PO PRN (21:57)
[2019-05-06] MEDS: methylPREDNISolone sod succ 125mg/2ml vial IV SCH ×2 (01:55→07:13)
[2019-05-06 02:00] VITALS: BP 112/70
[2019-05-06] MEDS: ipratropium/albuterol 3ml nebule NEB SCH ×3 (03:13→11:11)
[2019-05-06] MEDS: HYDROcodone/acetaminophen 5mg/325mg tablet PO PRN (03:39)
[2019-05-06] MEDS: diphenhydrAMINE 25mg capsule PO PRN (04:02)
[2019-05-06] MEDS: mag hydrox/Alum hydrox/simeth 30ml oral suspension PO PRN (04:02)
--- NOTE | 2019-05-06 05:01 | NUR ---
I have reviewed and agree with all medications administered and interventions performed by Orienting Nurse CLAYTON Vasques.
[2019-05-06 05:29] LABS: BASOPHILS % (AUTO) 0.1 % (0-1); EOSINOPHILS % (AUTO) 0 % (0-6); HEMATOCRIT 33.8 % (42.0-52.0); LYMPHOCYTES # (AUTO) 0.7 X10'3 (1.1-4.8); LYMPHOCYTES % (AUTO) 5.6 % (21-51); MEAN CORPUSCULAR HEMOGLOBIN 22.8 PG (27.0-31.0); MEAN CORPUSCULAR HGB CONC 32.7 g/dL (33.0-36.5); MEAN CORPUSCULAR VOLUME 69.9 FL (78-98); MEAN PLATELET VOLUME 7.7 FL (7.4-10.4); MONOCYTES # (AUTO) 0.5 X10'3 (0-0.9); MONOCYTES % (AUTO) 4.3 % (2-12); NEUTROPHILS # (AUTO) 10.5 X10'3 (1.8-7.7); PLATELET COUNT 273 X10'3 (140-440); RED BLOOD COUNT 4.83 X10'6 (4.70-6.10); RED CELL DISTRIBUTION WIDTH 15.3 % (11.5-14.5); WHITE BLOOD COUNT 11.7 X10'3 (4.5-11.0)
[2019-05-06 05:58] LABS: ALANINE AMINOTRANSFERASE 34 U/L (12-78); ALBUMIN 3.2 G/DL (3.4-5.0); ALBUMIN/GLOBULIN RATIO 1.2 (1.1-1.5); ALKALINE PHOSPHATASE 57 IU/L (46-116); ANION GAP 10 (8-16); ASPARTATE AMINO TRANSFERASE 44 U/L (10-37); BILIRUBIN,TOTAL 0.3 MG/DL (0.1-1.0); BLOOD UREA NITROGEN 12 MG/DL (7-18); BUN/CREATININE RATIO 11.8 (5.4-32.0); CALCIUM 8.5 MG/DL (8.5-10.1); CHLORIDE 106 MMOL/L (99-107); CREATININE 1.02 MG/DL (0.60-1.10); GLUCOSE 136 MG/DL (70-104); MAGNESIUM 2.2 MG/DL (1.5-2.4); PHOSPHORUS 2.8 MG/DL (2.3-4.5); POTASSIUM 3.7 MMOL/L (3.5-5.1); SODIUM 142 MMOL/L (135-145); TOTAL CARBON DIOXIDE 26.3 MMOL/L (24-32); TOTAL PROTEIN 5.8 G/DL (6.4-8.2); eGFR 72 ML/MIN
[2019-05-06 06:00] VITALS: BP 131/65
--- NOTE | 2019-05-06 06:00 | NUR ---
Problems reprioritized. Patient report given, questions answered & plan of care reviewed with CLAYTON Marina.
--- NOTE | 2019-05-06 06:16 | NUR ---
Patient in room PCU 3017. I have received report from Caprice ARNOLD and had the opportunity to ask questions and assume patient care.
[2019-05-06 06:58] LABS: MICROCYTOSIS 2+; PLATELET ESTIMATE NORMAL
[2019-05-06] MEDS: tamsulosin 0.4mg capsule PO SCH (07:10)
[2019-05-06] MEDS: lactobacillus rhamnosus 10,000 MMU CELLS/CAPSULE PO SCH (07:10)
[2019-05-06] MEDS: metoprolol tartrate 25mg tablet PO SCH (07:13)
[2019-05-06] MEDS: heparin, porcine 5000 units/ml vial SQ SCH (07:14)
[2019-05-06 07:45] LABS: CLARITY,URINE CLEAR (Clear); COLOR,URINE STRAW (Yellow); GLUCOSE, URINE 100 mg/dl (Neg); KETONES,URINE NEGATIVE (Neg); LEUKOCYTE ESTERASE ,URINE NEGATIVE (Neg); NITRITES, URINE NEGATIVE (Neg); OCCULT BLOOD,URINE NEGATIVE (Neg); PROTEIN,URINE NEGATIVE (Neg); UROBILINOGEN,URINE 0.2 E.U/dL (0.2-1.0)
[2019-05-06 07:58] LABS: UA COLLECTION TYPE CLN CATCH MIDSTREAM
[2019-05-06] MEDS: K and/or MAG REPLACEMENT MC SCH (08:00)
[2019-05-06] MEDS: normal saline 1000ml 1,000 ML IV SCH (08:11)
[2019-05-06] MEDS ORDERED: LACT1CAP26 PO (10:43)
[2019-05-06] MEDS ORDERED: PRED10TA23 PO (10:43)
[2019-05-06] MEDS ORDERED: LEVO750T46 PO (10:43)
[2019-05-06 11:00] VITALS: BP 141/78
[2019-05-06] MEDS ORDERED: levoFLOXACIN 750MG TABLET PO SCH (11:00)
--- NOTE | 2019-05-06 12:20 | NUR ---
Patient stable for discharge per MD Orders. All discharge instructions reviewed with patient and all questions answered. New prescriptions called into patient's preferred pharmacy. PIV and Tele monitor discontinued. Belongings collected and sent with patient. Patient left in private vehicle with and friend. Patient wheeled to lobby by primary RN.
== END 2019-05-06 12:20 | disposition home or self-care (01) | DRG 202 ==
LOC: ER 12:50 → PCU 3S 16:30
PROVIDERS: ADMIT Family Medicine; ATTEND Family Medicine
PROC: B32T1ZZ Computerized Tomography (CT Scan) of Left Pulmonary Artery using Low Osmolar Contrast (ICD-10-PCS; principal; 2019-05-04)
PROC: B3201ZZ Computerized Tomography (CT Scan) of Thoracic Aorta using Low Osmolar Contrast (ICD-10-PCS; 2019-05-04)
PROC: B32S1ZZ Computerized Tomography (CT Scan) of Right Pulmonary Artery using Low Osmolar Contrast (ICD-10-PCS; 2019-05-04)
PROC: 4A02XM4 Measurement of Cardiac Total Activity, External Approach (ICD-10-PCS; 2019-05-05)
PROC: 3E033HZ Introduction of Radioactive Substance into Peripheral Vein, Percutaneous Approach (ICD-10-PCS; 2019-05-05)
DX: J20.9 Acute bronchitis, unspecified (principal); J44.1 Chronic obstructive pulmonary disease with (acute) exacerbation; Z68.1 Body mass index [BMI] 19.9 or less, adult; E44.0 Moderate protein-calorie malnutrition; J44.0 Chronic obstructive pulmonary disease with (acute) lower respiratory infection; D50.9 Iron deficiency anemia, unspecified; I10 Essential (primary) hypertension; F41.9 Anxiety disorder, unspecified; N40.0 Benign prostatic hyperplasia without lower urinary tract symptoms; Z83.3 Family history of diabetes mellitus; Z87.891 Personal history of nicotine dependence; Z87.01 Personal history of pneumonia (recurrent); Z71.6 Tobacco abuse counseling
CPT/HCPCS: 36415; 71045; 71275; 78452; 80053; 80061; 81003; 83036; 83735; 83880; 84100; 84484; 85025; 85610; 85730; 87070; 87081; 93005; 93017; 93308; 94640; 94760; 96374; 99285; A9500; G0378; J1644; J1956; J2785; J2930; J7030; Q0163; Q9967

== ENCOUNTER 2020-05-17 12:58 | Outpatient (CLI) | payer MEDICARE ==
[~2020-05-17 12:58] MED LIST changes: -ALBU6.7H9 INH; +ALBU8.5H8 IH; -ATR0.5NEB IH; -FLUT1AER INH; +IPRA3AMP31 IH; -LABE100T5; +LACT1CAP26 PO; +LEVO750T46 PO; -LORA0.5T; +LORA0.5T PO; +METO25TA6 PO; -TIOT4MIS3 INH
== END 2020-05-17 23:59 | disposition home or self-care (01) ==
LOC: RT 12:58
PROVIDERS: ATTEND Family Medicine
DX: J44.9 Chronic obstructive pulmonary disease, unspecified (principal); Z53.21 Procedure and treatment not carried out due to patient leaving prior to being seen by health care provider
CPT/HCPCS: 94618

== ENCOUNTER 2021-07-29 19:02 | Emergency (ER) | payer MEDICARE ==
[~2021-07-29] VITALS: Ht 165.1 cm; Wt 54.5 kg
[~2021-07-29 19:02] MED LIST changes: +ALBU8.5H17 IH; -ALBU8.5H8 IH; +FLO0.4C PO; +GUAI400T92 PO; +GUAI600T45 PO; -IPRA3AMP31 IH; -LACT1CAP26 PO; -LEVO750T46 PO; +LORA-268 PO; -LORA0.5T PO; +METO-384 PO; +METO-395 PO; -METO25TA6 PO; +PRED10TA PO; -TAMS0.4C32 PO; +TIOT4MIS3 IH
[2021-07-30] VITALS: BP 142/83
[2021-07-30] MEDS ORDERED: dexamethasone 4mg tablet PO ONE (00:15)
[2021-07-30] MEDS ORDERED: ipratropium/albuterol 3ml nebule NEB ONE (00:15)
[2021-07-30] MEDS ORDERED: azithromycin 250mg tablet PO ONE (00:15)
[2021-07-30] MEDS ORDERED: benzonatate 100mg capsule PO ONE (00:15)
[2021-07-30 01:14] LABS: BASOPHILS % (AUTO) 0.2 % (0-1); EOSINOPHILS # (AUTO) 0.1 X10'3 (0-0.9); EOSINOPHILS % (AUTO) 0.7 % (0-6); HEMATOCRIT 38.2 % (42.0-52.0); HEMOGLOBIN 12.2 g/dl (14.0-17.9); LYMPHOCYTES # (AUTO) 1.9 X10'3 (1.1-4.8); LYMPHOCYTES % (AUTO) 16.1 % (21-51); MEAN CORPUSCULAR HEMOGLOBIN 22.4 PG (27.0-31.0); MEAN CORPUSCULAR VOLUME 70.1 FL (78-98); MEAN PLATELET VOLUME 7.8 FL (7.4-10.4); MONOCYTES # (AUTO) 0.8 X10'3 (0-0.9); MONOCYTES % (AUTO) 6.4 % (2-12); NEUTROPHILS # (AUTO) 9.1 X10'3 (1.8-7.7); NEUTROPHILS % (AUTO) 76.6 % (42-75); PLATELET COUNT 317 X10'3 (140-440); RED BLOOD COUNT 5.45 X10'6 (4.70-6.10); RED CELL DISTRIBUTION WIDTH 15.1 % (11.5-14.5); WHITE BLOOD COUNT 11.9 X10'3 (4.5-11.0)
[2021-07-30 01:31] LABS: ALANINE AMINOTRANSFERASE 68 U/L (12-78); ALBUMIN 3.7 G/DL (3.4-5.0); ALBUMIN/GLOBULIN RATIO 1.1 (1.1-1.5); ALKALINE PHOSPHATASE 112 IU/L (46-116); ANION GAP 7 (8-16); ASPARTATE AMINO TRANSFERASE 33 U/L (10-37); BILIRUBIN,TOTAL 0.3 MG/DL (0.1-1.0); BLOOD UREA NITROGEN 22 MG/DL (7-18); BUN/CREATININE RATIO 24.4 (5.4-32.0); CALCIUM 9.2 MG/DL (8.5-10.1); CHLORIDE 104 MMOL/L (99-107); GLUCOSE 113 MG/DL (70-104); POTASSIUM 4.6 MMOL/L (3.5-5.1); SODIUM 143 MMOL/L (135-145); TOTAL CARBON DIOXIDE 31.9 MMOL/L (24-32); eGFR 83 ML/MIN
[2021-07-30] MEDS ORDERED: PRED20TA PO (01:53)
[2021-07-30] MEDS ORDERED: AZIT-83 PO (01:53)
== END 2021-07-30 02:31 | disposition home or self-care (01) ==
LOC: ER 19:03
DX: J44.1 Chronic obstructive pulmonary disease with (acute) exacerbation (principal); R06.02 Shortness of breath; R05.9 Cough, unspecified; I10 Essential (primary) hypertension; Z87.01 Personal history of pneumonia (recurrent); Z85.46 Personal history of malignant neoplasm of prostate; Z90.89 Acquired absence of other organs; Z79.2 Long term (current) use of antibiotics; Z79.899 Other long term (current) drug therapy
CPT/HCPCS: 36415; 71045; 80053; 83880; 84145; 84484; 85025; 93005; 94640; 94760; 99285